=== PATIENT | male | born 1945 | race Caucasian/White ===

== ENCOUNTER 2017-03-16 14:44 | Observation (INO) ==
[2017-03-16] MEDS ORDERED: Oxymetazoline Nasal SPRAY BOTTLE NS ONE (15:03)
[2017-03-16] MEDS ORDERED: Lidocaine -MPF 4% 5 ML AMPUL INFILT ONE (15:03)
[2017-03-16] MEDS ORDERED: 0.9 % Sodium Chloride 1,000 ML IVC ONE ×2 (15:21→16:24)
--- NOTE | 2017-03-16 15:46 | Emergency Department Note ---
Disposition Clinical Impression: Acute blood loss anemia, Epistaxis Disposition: Admitted As Inpatient Condition: Good Referrals: Caryl Oliver [Primary Care Provider] - Forms: ED Satisfaction Letter Time of Disposition: 16:42 General Adult HPI - General Chief complaint: ED Epistaxis Stated complaint: nose bleed Time Seen by Provider: 03/16/17 14:50 Source: patient Limitations: no limitations Nursing Notes Reviewed: Yes Vital Signs Reviewed: Yes - History of Present Illness HPI Narrative: After being discharged by me approximately 2 hours ago he developed epistaxis again to return to the emergency department. He was previously packed by ENT. He arrived to the emergency department with blood coming from the right nare. His left nare is packed and also had blood seeping around the left packing. No syncope. On no blood thinners. No bleeding from anywhere else. Pain Scale: 0 Consistency: constant Improves with: nothing Worsens with: nothing Associated symptoms: Reports: denies other symptoms Treatments Prior to Arrival: none - Related Data Home Medications Medication Instructions Recorded Confirmed Amlodipine Besylate 10 mg PO DAILY 03/16/17 03/16/17 Atorvastatin [Lipitor] 10 mg PO HS 03/16/17 03/16/17 Cholecalciferol (Vitamin D3) 5,000 unit PO DAILY 03/16/17 03/16/17 [Vitamin D3] Fenofibric Acid (Choline) 135 mg PO DAILY 03/16/17 03/16/17 [Trilipix] Gabapentin [Neurontin] 300 mg PO BID 03/16/17 03/16/17 Losartan Potassium [Cozaar] 100 mg PO DAILY 03/16/17 03/16/17 Metformin HCl [Glucophage] 1,000 mg PO BID 03/16/17 03/16/17 Metoprolol [Lopressor] 100 mg PO BID 03/16/17 03/16/17 Mupirocin [Bactroban Oint] 12 appl TP TID 03/16/17 03/16/17 Sitagliptin Phosphate [Januvia] 50 mg PO DAILY 03/16/17 03/16/17 glipiZIDE [Glipizide] 10 mg PO BID 03/16/17 03/16/17 Previous Rx's Medication Instructions Recorded Amoxicillin/Clavulanate [Augmentin] 875 mg PO BIDWM #10 tablet 03/13/17 Allergies Allergy/AdvReac Type Severity Reaction Status Date / Time No Known Allergies Allergy Verified 03/16/17 14:45 All systems ED: reviewed and negative except as stated. Constitutional: Denies: fever Eyes: Denies: vision change ENT ED: Denies: throat pain Cardiovascular: Denies: chest pain Respiratory: Denies: cough Gastrointestinal: Denies: abdominal pain Musculoskeletal: Denies: back pain Integumentary: Denies: rash Past Medical History - Past Medical History Medical history: Reports: cancer, coronary artery disease, diabetes, hyperlipidemia, hypertension Psychiatric history: Reports: no psych history - Social History Smoking Status: Current every day smoker Smokeless Tobacco Status: No Alcohol use: Reports: occasionally Drug use: Reports: marijuana Physical Exam - General Limitations: no limitations General appearance: alert - Head Head exam: atraumatic - ENT ENT exam: other (left nare packed with blood seeming. Bleeding from right nare with blood down the back of the throat. ) - Cardiovascular Cardiovascular exam: Present: regular rate, normal rhythm - Abdominal Exam Abdominal exam: Present: soft, Non-Tender - Extremities Exam Extremities exam: Present: normal inspection - Neurological Exam Neurological exam: Present: alert, oriented X3 - Skin Skin exam: Present: warm, dry Course Course Narrative: Afrin with 4% lidocaine was instilled in bilateral nares after removal of the packing. No continued bleeding from the right nares after removing the left packing. Unable to see the bleeding source of the left nares. Places a posterior packing with a posterior balloon. Bleeding controlled. Will admit for observation. Spoke with ENT Dr Domingo who will come in and see the patient today. Bernardo has accepted the patient. Vital Signs Temperature 97.9 F 03/16/17 14:45 Pulse Rate 86 03/16/17 14:45 Respiratory Rate 20 03/16/17 14:45 Blood Pressure 119/60 03/16/17 14:45 O2 Sat by Pulse Oximetry 93 03/16/17 14:45 Temperature 97.9 F 03/16/17 14:45 Pulse Rate 86 03/16/17 14:45 Respiratory Rate 20 03/16/17 14:45 Blood Pressure 119/60 03/16/17 14:45 O2 Sat by Pulse Oximetry 93 03/16/17 14:45 Oxygen Delivery Oxygen Delivery Room Air Medical Decision Making - Medical Records Medical records reviewed: Yes I reviewed the patient's medical records. - Lab Data Lab results reviewed: Yes I reviewed the patient's lab results. Attestation Statement - Attestation Attestation: I, Hung Chahal DO, examined this patient [id number] and my medical decision-making was reviewed with Dr. Walter Mejia, Resident Physician. I agree with the documented findings, disposition and treatment plan as described except to the extent set forth below. Please see my progress notes for details. 71-year-old male presents to emergency room with acute epistaxis. He is seen earlier by myself in no acute bleeding. His hemoglobin was 8.0 at that time. Yesterday emergency room and made all the way to his home when he started to bleed again profusely. Immediate evaluation was completed at the bedside by myself and the resident physician. Nasal packing was applied with Afrin and lidocaine. Patient also had a posterior packing placed in the emergency room. ENT was contacted. Type and screen was ordered at this time and fluid hydration given. Patient will be admitted for further evaluation and management. Hospitalist page otherwise. Vital signs are stable. Patient has no other medical concerns or symptoms. After the treatment the procedure course was completed patient has hemostasis. No blood in the posterior pharynx noted at this time. Bleeding is controlled from the nostrils. See detailed documentation of physical exam, medical intervention, medical decision-making and disposition in the resident physician's note [id number] Patient will be evaluated by ENT here in the emergency room. Hospitalist artery patient informed to the patient. Happy to except for definitive evaluation.
[2017-03-16] MEDS ORDERED: Naloxone 0.4 MG/ML INJ IVP PRN (19:55)
[2017-03-16] MEDS ORDERED: *HR* Dextrose 50 % in Water (Syg) 50 ML SYRINGE IVP PRN (20:02)
[2017-03-16] MEDS ORDERED: D5% in Water 1,000 ML IVC PRN (20:02)
[2017-03-16] MEDS ORDERED: Dextrose Gel 15 GM PO PRN ×2 (20:02)
[2017-03-16] MEDS ORDERED: 0.9 % Sodium Chloride 1,000 ML IVC SCH (20:15)
--- NOTE | 2017-03-16 20:17 | Internal Med History&Physical ---
<Sandy Menchaca - Last Filed: 03/16/17 20:47> Date of Encounter: 03/16/17 Time of Encounter: 20:11 Assessment and Plan (1) Acute blood loss anemia Current visit: Yes Status: Acute Patient has been experiencing epistaxis for the past 5 days hemoglobin was 18 on 03/13 2017 today it is 12.2. Presently left nares is packed with no active bleeding noted we will continue to monitor CBC and transfuse as needed Continuous cardiac monitoring-history of coronary artery disease and sudden blood loss We will hold aspirin (2) Epistaxis Current visit: Yes Status: Acute Patient has been experiencing off and on left nares up excesses for the past 5 days it has been packed as well as cauterized with silver nitrate. Presently left nares is packed no active bleeding noted at this time. We did consult ENT Monitor H&H-transfuse as needed [place] blood pressure is stable we will continue to monitor for any hypertensive or hypotensive episodes Continuous cardiac monitoring Hold aspirin for now (3) Coronary artery disease Current visit: Yes Status: Chronic Continue with beta clementina statin hold ARB due to hypertension as well as aspirin due to bleeding. Continuous cardiac monitoring Nitrates as needed for chest pain Qualifiers: Coronary Disease-Associated Artery/Lesion type: [place] artery [place] vs. transplanted heart: [place] heart Associated angina: without angina Qualified Code(s): I25.10 - Atherosclerotic heart disease of [place] coronary artery without angina pectoris (4) Hypertension Current visit: Yes Status: Chronic Patient has been experiencing acute blood loss secondary to epistaxis. We will hold antihypertensives for now blood pressure is stable at 130 systolic we will resume once back to baseline Qualifiers: Hypertension type: essential hypertension Qualified Code(s): I10 - Essential (primary) hypertension (5) Diabetes Current visit: Yes Status: Chronic We will hold oral medications for now Accu-Cheks before meals at bedtime with sliding-scale insulin Diabetic diet Qualifiers: Diabetes mellitus type: type 2 Diabetes mellitus complication status: without complication Diabetes mellitus shelter insulin use: without intermediate school teacher use Qualified Code(s): E11.9 - Type 2 diabetes mellitus without complications (6) DVT prophylaxis Current visit: Yes Status: Acute 1 KAREN chavez Internal Medicine - H&P: HPI Chief complaint: nosebleed Admitted From: Emergency Dept Plans for Post Hospital Care: Home History of present illness: Mr. Jose is a 71 year old male past medical history of colon cancer last chemotherapy was March 17 of last year. Coronary artery disease with stent placement diabetes hyperlipidemia hypertension he is a current smoker. Patient has been experiencing off and on left-sided epistaxis throughout the week. He originally presented to the ER on the and had a "Rhino Rocket" placed. He continued to bleed around the packing and seen by Dr. Chayo ROBERT in her office. Packing was removed and no bleeding was noted he was advised to stop his aspirin, however few hours after it was removed the bleeding resumed again from the left nares. He was seen back in the ENT office this morning and packing was removed left nares was cauterized with silver nitrate and repacked. He was advised to go to the ER for evaluation since he seems so pale. He was evaluated by ER and sent home and 2 hours later he really turns with continued bleeding from left nares as well as from the right. Lab work was obtained which did show a drop in hemoglobin was 12.2 today it was 18 on the . The left nares was repacked right nares had stopped bleeding and he has been admitted for further observation. ENT was notified per ER physician who will see patient on consult. Presently patient is hemodynamically stable there is no active bleeding from his nares. I did review this case with Dr. Grady who agrees with plan. Past Med Surg Social Fam HX - Past Medical History Medical history: cancer, coronary artery disease, diabetes, hyperlipidemia, hypertension Psychiatric history: no psych history - Social History Smoking Status: Current every day smoker Packs per day: 2-3 Smokeless Tobacco Status: No Alcohol use: occasionally Drug use: marijuana - Family History Mother Living Status: Still Living Hx Family Cardiac Disorders: Yes (Heart disease) Internal Medicine - H&P: Meds Amoxicillin/Clavulanate [Augmentin] 875 mg PO BIDWM #10 tablet 03/13/17 [Rx] Amlodipine Besylate 10 mg PO DAILY 03/16/17 [History] Atorvastatin [Lipitor] 10 mg PO HS 03/16/17 [History] Cholecalciferol (Vitamin D3) [Vitamin D3] 5,000 unit PO DAILY 03/16/17 [History] Fenofibric Acid (Choline) [Trilipix] 135 mg PO DAILY 03/16/17 [History] Gabapentin [Neurontin] 300 mg PO BID 03/16/17 [History] Losartan Potassium [Cozaar] 100 mg PO DAILY 03/16/17 [History] Metformin HCl [Glucophage] 1,000 mg PO BID 03/16/17 [History] Metoprolol [Lopressor] 100 mg PO BID 03/16/17 [History] Mupirocin [Bactroban Oint] 12 appl TP TID 03/16/17 [History] Sitagliptin Phosphate [Januvia] 50 mg PO DAILY 03/16/17 [History] glipiZIDE [Glipizide] 10 mg PO BID 03/16/17 [History] 3 Allergy/AdvReac Type Severity Reaction Status Date / Time No Known Allergies Allergy Verified 03/16/17 14:45 All Systems PM: A 10-system review of systems was performed and is negative for pertinent findings except as documented above in the HPI. - Constitutional Constitutional: no chills, no fever(s), no night sweats - EENT Eyes: no change in vision, no discharge, no pain, no photophobia Ears: no ear discharge, no ear pain, no tinnitus Nose, mouth and throat: epistaxis, no dysphagia, no nasal discharge, no neck pain, no sore throat - Cardiovascular Cardiovascular ROS IM: no chest pain, no diaphoresis, no dyspnea, no lightheadedness, no palpitations, no syncope - Respiratory Respiratory: no cough, no dyspnea, no wheezing, no excessive phlegm production - Gastrointestinal Gastrointestinal: no abdominal pain, no diarrhea, no hematemesis, no hematochezia, no melena, no nausea, no vomiting - Musculoskeletal Musculoskeletal ROS IM: no numbness, no tingling - Integumentary Integumentary IM: no rash, no unusual bruising - Neurological Neurological ROS: no confusion, no convulsions, no focal weakness, no numbness, no tingling, no tremor(s) - Hematologic/Lymphatic Hematologic/Lymphatic: no easy bruising - Constitutional Vitals: Temp Pulse Resp BP Pulse Ox 98.3 F 80 16 133/57 96 03/16/17 18:56 03/16/17 18:56 03/16/17 18:56 03/16/17 18:56 03/16/17 18:56 General appearance: Present: A&O X 3, morbidly obese - Head Head exam: Present: atraumatic, normocephalic - Eye Eye exam: Present: PERRL, conjuntiva pink, sclera anicteric Pupils: Present: PERRL - Neck Neck exam general surgery: Present: supple, trachea midline. Absent: lymphadenopathy - Respiratory Respiratory exam: Present: CTAB. Absent: accessory muscle use, rales, rhonchi, wheezes - Cardiovascular Cardiovascular exam: Present: RRR, +S1, +S2. Absent: diastolic murmur, gallop, rubs, systolic murmur - GI/Abdominal GI/Abdominal exam: Present: normal bowel sounds, soft, no peritoneal signs. Absent: distended, tenderness - Extremities Exam Extremities exam: Present: warm, radial pulses palpable and symmetrical. Absent : calf tenderness, cyanotic, pedal edema - Neurological Exam Neurological exam: Present: CN II-XII intact, oriented X3, no focal deficits. Absent: pronater drift, facial droop, speech deficit - Skin Skin exam: Present: dry, intact <Brian Grady - Last Filed: 03/17/17 00:43> Date of Encounter: 03/17/17 Internal Medicine - H&P: HPI History of present illness: Mr. Garcia is a 71 year old male All Systems PM: A 10-system review of systems was performed and is negative for pertinent findings except as documented above in the HPI. - Constitutional Vitals: Temp Pulse Resp BP Pulse Ox 98.5 F 71 14 122/66 97 03/16/17 23:47 03/16/17 23:47 03/16/17 23:47 03/16/17 23:47 03/16/17 23:47 - Attending Attestation I have seen and examined this patient independently. I have discussed with WEBSITE ADMIN Ms Menchaca regarding the management plan. Agree with the documentation. Patient has nose bleeding. Stopped active bleeding now. Patient feels fine, denies chest pain or shortness of breath. Continue closely monitor patient. ENT consult will see patient in a.m.
[2017-03-16] MEDS: Metoprolol 100 MG TABLET PO SCH (21:21)
[2017-03-16] MEDS: Gabapentin 300 MG CAPSULE PO SCH (21:21)
[2017-03-16] MEDS: Insulin LISPRO 300 UNITS/3 ML VIAL SQ SCH (22:01)
[2017-03-17 05:14] LABS: Basophils # 0.1 K/mcL (0.0-0.2); Basophils % 0.5 %; Eosinophils # 0.1 K/mcL (0.0-0.6); Eosinophils % 1.1 %; Hematocrit 21.1 % (37.5-50.1); Hemoglobin 6.8 g/dL (12.9-16.9); Immature Granulocytes % 0.3 % (0-4); Lymphocytes # 2.5 K/mcL (0.6-4.6); Lymphocytes % 26.2 %; Mean Corpuscular HGB Conc 32.2 g/dL (31.6-35.5); Mean Corpuscular Hemoglobin 27.3 pg (28.0-33.3); Mean Corpuscular Volume 84.7 fL (83.0-100.0); Mean Platelet Volume 10.8 fL (9.4-12.4); Monocytes # 0.8 K/mcL (0.0-1.3); Monocytes % 8.2 %; Neutrophils # 6.1 K/mcL (1.6-8.9); Platelet Count 235 K/mcL (140-400); Red Blood Count 2.49 M/mcL (4.19-5.50); Red Cell Distribution Width 14.3 % (11.5-14.5); Segmented Neutrophils % 63.7 %
[2017-03-17] MEDS: Acetaminophen 325 MG TABLET PO PRN ×2 (08:32→15:21)
[2017-03-17] MEDS: Cholecalciferol (D-3) 1,000 UNIT TABLET PO SCH (08:33)
[2017-03-17] MEDS: Gabapentin 300 MG CAPSULE PO SCH ×2 (08:33→20:01)
[2017-03-17] MEDS: Metoprolol 100 MG TABLET PO SCH ×2 (08:33→20:01)
[2017-03-17] MEDS: Fenofibrate 54 MG TABLET PO SCH (08:33)
[2017-03-17] MEDS: Insulin LISPRO 300 UNITS/3 ML VIAL SQ SCH ×4 (08:34→20:18)
--- NOTE | 2017-03-17 09:20 | ENT - Consult Note ---
Date of Encounter: 03/17/17 Time of Encounter: 09:16 Assessment and Plan (1) Epistaxis Current Visit: Yes Status: Acute The patient is currently stable but has had significant blood loss and I have been unable to find a specific spot to cauterize. I highly agree with the transfusion and I would like him stay at least another 24 hours before discharged. The pack needs to stay in place until Sunday and can then be removed in the ENT clinic. He should be discharged on the Augmentin. Should he rebleed consideration should be made for transfer for possible Interventional radiology. I will check on him again tomorrow AM or sooner as needed. History of Present Illness Reason for ENT Consult: epistaxis History of present illness: 71 yo male well known to me with recurrent left sided epistaxis during most of the week. Yesterday I did a nasal endoscopy and cauterized several suspicious spots but no obvious bleeding spot was found. He was pale and diaphoretic in the office. We sent him directly to the ED for blood work and admission for observation. His Hgb was 8.0 and for some reason (perhaps patient insistence) he was sent home without a transfusion. He then returned to the ED in the afternoon with more bleeding and was successfully repacked. His Hgb this morning is 6.9 with a transfusion ordered. He denies further bleeding through the night. Past Med Surg Social Fam HX - Past Medical History Medical history: cancer, coronary artery disease, diabetes, hyperlipidemia, hypertension Psychiatric history: no psych history - Social History Smoking Status: Current every day smoker Packs per day: 2-3 Smokeless Tobacco Status: No Alcohol use: occasionally Drug use: marijuana - Family History Mother Living Status: Still Living Hx Family Cardiac Disorders: Yes (Heart disease) Medications and Allergies Amoxicillin/Clavulanate [Augmentin] 875 mg PO BIDWM #10 tablet 03/13/17 [Rx] Amlodipine Besylate 10 mg PO DAILY 03/16/17 [History] Atorvastatin [Lipitor] 10 mg PO HS 03/16/17 [History] Cholecalciferol (Vitamin D3) [Vitamin D3] 5,000 unit PO DAILY 03/16/17 [History] Fenofibric Acid (Choline) [Trilipix] 135 mg PO DAILY 03/16/17 [History] Gabapentin [Neurontin] 300 mg PO BID 03/16/17 [History] Losartan Potassium [Cozaar] 100 mg PO DAILY 03/16/17 [History] Metformin HCl [Glucophage] 1,000 mg PO BID 03/16/17 [History] Metoprolol [Lopressor] 100 mg PO BID 03/16/17 [History] Mupirocin [Bactroban Oint] 12 appl TP TID 03/16/17 [History] Sitagliptin Phosphate [Januvia] 50 mg PO DAILY 03/16/17 [History] glipiZIDE [Glipizide] 10 mg PO BID 03/16/17 [History] 3 Allergy/AdvReac Type Severity Reaction Status Date / Time No Known Allergies Allergy Verified 03/16/17 14:45 ENT Exam Initial Vital Signs Temp Pulse Resp BP Pulse Ox 97.9 F 86 20 119/60 93 03/16/17 14:45 03/16/17 14:45 03/16/17 14:45 03/16/17 14:45 03/16/17 14:45 - ENT Other (Pack in place left nares, no blood around pack or in right nares, oral cavity without old or fresh blood.) Exam Initial Vital Signs Temp Pulse Resp BP Pulse Ox 97.9 F 86 20 119/60 93 03/16/17 14:45 03/16/17 14:45 03/16/17 14:45 03/16/17 14:45 03/16/17 14:45 Results - Labs 03/17/17 04:45 Abnormal lab results RBC 2.49 M/mcL (4.19-5.50) L 03/17/17 04:45 Hgb 6.8 g/dL (12.9-16.9) L 03/17/17 04:45 Hct 21.1 % (37.5-50.1) L 03/17/17 04:45 MCH 27.3 pg (28.0-33.3) L 03/17/17 04:45 POC Glucose 208 (58-89) H 03/16/17 21:49 All other labs normal. Consult Discharge Plan - Plan Referrals: Caryl Oliver [Primary Care Provider] -
[2017-03-17 10:00] LABS: Hematocrit 23.4 % (37.5-50.1); Hemoglobin 7.1 g/dL (12.9-16.9)
[2017-03-17] MEDS ORDERED: 0.9 % Sodium Chloride 250 ML ONE ×2 (11:19→16:04)
--- NOTE | 2017-03-17 15:52 | Internal Med Progress Note ---
Date of Encounter: 03/17/17 Time of Encounter: 08:35 - Assessment and plan (1) Epistaxis Current Visit: Yes Status: Acute Assessment and plan: Patient admitted for ongoing epistaxis for 3-4 days. He has been seen multiple times. ENT has been unable to find a specific spot cauterized. He does have blood loss anemia from epistaxis. Hemoglobin was 6.9. He is received 2 units of packed red blood cells. We will continue to monitor overnight and will repeat H&H overnight. ENT will reevaluate patient in the morning. If bleeding continues, may consider transferring to another facility for IR. (2) Acute blood loss anemia Current Visit: Yes Status: Acute Assessment and plan: Hemoglobin 6.9. Patient has received 2 units of packed red cells. We will continue to monitor hemoglobin and hematocrit overnight. Continue telemetry Watch for signs of bleeding Transfuse if hemoglobin less than 8. (3) Hypertension Current Visit: Yes Status: Chronic Assessment and plan: Continue home medications. Qualifiers: Hypertension type: essential hypertension Qualified Code(s): I10 - Essential (primary) hypertension (4) Diabetes Current Visit: Yes Status: Chronic Assessment and plan: Continue sliding scale insulin, Accu-Cheks before meals at bedtime, diabetic diet. Qualifiers: Diabetes mellitus type: type 2 Diabetes mellitus complication status: without complication Diabetes mellitus fci insulin use: without watermaster use Qualified Code(s): E11.9 - Type 2 diabetes mellitus without complications (5) Coronary artery disease Current Visit: Yes Status: Chronic Assessment and plan: Patient denies chest pain. Patient is being monitored due to anemia. Continue beta clementina, statin, and fenofibrate. Qualifiers: Coronary Disease-Associated Artery/Lesion type: [place] artery [place] vs. transplanted heart: [place] heart Associated angina: without angina Qualified Code(s): I25.10 - Atherosclerotic heart disease of [place] coronary artery without angina pectoris (6) DVT prophylaxis Current Visit: Yes Status: Acute - Time Spent With Patient less than 15 minutes - Subjective Interval history: Patient was seen and assessed at bedside at 8:35 AM. Patient reports epistaxis for 3-4 days. He has been seen at the ENT office several times, he was sent to the emergency department yesterday and was sent home. Patient presented again and was admitted. He denies any pain. Packing remains in place. He denies headache or blurred vision, no nausea or vomiting diarrhea. No new cough or hemoptysis. - Constitutional Vitals: Temp Pulse Resp BP Pulse Ox 97.9 F 76 18 129/68 96 03/17/17 15:38 03/17/17 15:38 03/17/17 15:38 03/17/17 15:38 03/17/17 15:38 General appearance: Present: cooperative, A&O X 3, morbidly obese, pleasant, no acute distress, answers questions appropriately - Head Head exam: Present: atraumatic, normal inspection, normocephalic - Eye Eye exam: Present: PERRL, conjuntiva pink, sclera anicteric Pupils: Present: PERRL - Neck Neck exam general surgery: Present: supple, trachea midline. Absent: lymphadenopathy - Respiratory Respiratory exam: Present: CTAB. Absent: accessory muscle use, rales, rhonchi, wheezes - Cardiovascular Cardiovascular exam: Present: RRR, +S1, +S2. Absent: diastolic murmur, gallop, rubs, systolic murmur - GI/Abdominal GI/Abdominal exam: Present: normal bowel sounds, soft, no peritoneal signs. Absent: distended, tenderness - Extremities Exam Extremities exam: Present: warm, radial pulses palpable and symmetrical. Absent : calf tenderness, cyanotic, pedal edema - Neurological Exam Neurological exam: Present: CN II-XII intact, oriented X3, no focal deficits. Absent: pronater drift, facial droop, speech deficit - Skin Skin exam: Present: dry, intact Internal Medicine: Result - Labs CBC & Chem 7: 03/17/17 09:47 Labs: Short CBC 03/17/17 03/17/17 Range/Units 04:45 09:47 WBC 9.6 (4.3-11.1) K/mcL Hgb 6.8 L 7.1 L (12.9-16.9) g/dL Hct 21.1 L 23.4 L (37.5-50.1) % Plt Count 235 (140-400) K/mcL Neutrophils # 6.1 (1.6-8.9) K/mcL Consult Discharge Plan - Plan Referrals: Caryl Oliver [Primary Care Provider] -
[2017-03-17 19:42] LABS: Hematocrit 27.6 % (37.5-50.1)
[2017-03-17 19:43] LABS: Hemoglobin 8.9 g/dL (12.9-16.9)
[2017-03-18] MEDS: Gabapentin 300 MG CAPSULE PO SCH (08:10)
[2017-03-18] MEDS: Cholecalciferol (D-3) 1,000 UNIT TABLET PO SCH (08:10)
[2017-03-18] MEDS: Fenofibrate 54 MG TABLET PO SCH (08:10)
[2017-03-18] MEDS: Metoprolol 100 MG TABLET PO SCH (08:10)
[2017-03-18] MEDS: Insulin LISPRO 300 UNITS/3 ML VIAL SQ SCH (10:27)
[2017-03-18 11:02] VITALS: BP 126/56
[2017-03-18] MEDS ORDERED: *HR* Heparin 5,000 UNIT/ML VIAL ONE (11:38)
--- NOTE | 2017-03-18 12:54 | Discharge Summary ---
Date of Encounter: 03/18/17 Time of Encounter: 12:24 - Discharge Diagnosis (1) Epistaxis Priority: Primary Status: Acute Comments: Patient admitted for ongoing epistaxis for 3-4 days. He has been seen multiple times. ENT has been unable to find a specific spot cauterized. He does have blood loss anemia from epistaxis. Hemoglobin was 6.9. He is received 2 units of packed red blood cells. We will continue to monitor overnight and will repeat H&H overnight. ENT has evaluated the pt again this morning, they have signed off. No active bleeding noted. Patient will be sent home with a prescription for Augmentin 875 mg by mouth twice a day 5 more days. Prescription was sent to patient's pharmacy. Patient will follow-up in the office. (2) Acute blood loss anemia Priority: Secondary Status: Acute Comments: Hemoglobin 8.9. Patient has received 2 units of packed red cells for initial hemoglobin of 6.9. No signs of bleeding noted. Patient is stable for discharge. (3) Hypertension Priority: Secondary Status: Chronic Comments: Chronic. Continue home medications. Qualifiers: Hypertension type: essential hypertension Qualified Code(s): I10 - Essential (primary) hypertension (4) Diabetes Priority: Secondary Status: Chronic Comments: Chronic. Continue home medications and regimen at home. Qualifiers: Diabetes mellitus type: type 2 Diabetes mellitus complication status: without complication Diabetes mellitus complaint evaluation supervisor insulin use: without skilled nursing use Qualified Code(s): E11.9 - Type 2 diabetes mellitus without complications (5) Coronary artery disease Priority: Secondary Status: Chronic Comments: Patient denies chest pain. Continue home medications Qualifiers: Coronary Disease-Associated Artery/Lesion type: [place]bler artery [place] vs. transplanted heart: ambler heart Associated angina: without angina Qualified Code(s): I25.10 - Atherosclerotic heart disease of [place] coronary artery without angina pectoris (6) DVT prophylaxis Priority: Secondary Status: Acute Comments: Patient was ambulatory. KAREN chavez ordered. No pharmacologic intervention warranted due to anemia and epistaxis. - Discharge Medications Prescriptions: Amoxicillin/Clavulanate [Augmentin] 875 mg PO BIDWM #10 tablet Home Medications: Amlodipine Besylate 10 mg PO DAILY 03/16/17 [History] Atorvastatin [Lipitor] 10 mg PO HS 03/16/17 [History] Cholecalciferol (Vitamin D3) [Vitamin D3] 5,000 unit PO DAILY 03/16/17 [History] Fenofibric Acid (Choline) [Trilipix] 135 mg PO DAILY 03/16/17 [History] Gabapentin [Neurontin] 300 mg PO BID 03/16/17 [History] Losartan Potassium [Cozaar] 100 mg PO DAILY 03/16/17 [History] Metformin HCl [Glucophage] 1,000 mg PO BID 03/16/17 [History] Metoprolol [Lopressor] 100 mg PO BID 03/16/17 [History] Mupirocin [Bactroban Oint] 12 appl TP TID 03/16/17 [History] Sitagliptin Phosphate [Januvia] 50 mg PO DAILY 03/16/17 [History] glipiZIDE [Glipizide] 10 mg PO BID 03/16/17 [History] Amoxicillin/Clavulanate [Augmentin] 875 mg PO BIDWM #10 tablet 03/18/17 [Rx] Allergies/Adverse Reactions: 3 Allergy/AdvReac Type Severity Reaction Status Date / Time No Known Allergies Allergy Verified 03/16/17 14:45 Date of admission: 03/16/17 17:03 Primary care physician: Caryl Oliver Discharging clinician: Evelyn Arzate Anticipated date of discharge: 03/18/17 - Patient Status Disposition: Home, Self-Care Condition: Good Functional capacity at discharge: independent ambulation - Discharge Instructions Instructions: Epistaxis (DC), Diabetes Mellitus Type 2 in Adults (DC), Chronic Hypertension (DC), Anemia (GEN) Follow Up With: Caryl Oliver [Primary Care Provider] - Additional Instructions: Please follow up with primary care provider in the next 7-10 days for recheck. Please follow up with ENT as specified. Resume normal medications and activities. Your new prescription has been called into your pharmacy. Please maintain a heart healthy and diabetic diet. Hospital course: Mr. Garcia is a 71 year old male with diabetes, CAD, hypertension, hyperlipidemia was admitted to the emergency department after bouncing back several times, was also in provider office for epistaxis. Patient was seen by ENT yesterday and today. There is not appear to be any bleeding at this time. Patient will be sent home on Augmentin 875 mg by mouth twice a day for 5 days. He will follow up in the office for continued monitoring. Hemoglobin is stable. Patient was admitted with hemoglobin of 6.9 and received 2 units of packed red cells. Vitals are stable. Patient is stable and ready for discharge. - Time Spent with Patient Total time spent providing and/or coordinating discharge services: Less than 30 minutes - Constitutional Vitals: Temp Pulse Resp BP Pulse Ox 98.2 F 73 16 126/56 96 03/18/17 11:01 03/18/17 11:01 03/18/17 11:01 03/18/17 11:01 03/18/17 11:01 General appearance: Present: cooperative, disheveled, A&O X 3, morbidly obese, pleasant, no acute distress, answers questions appropriately - Head Head exam: Present: atraumatic, normal inspection, normocephalic - Eye Eye exam: Present: normal appearance, conjuntiva pink, sclera anicteric - Neck Neck exam general surgery: Present: supple, trachea midline. Absent: lymphadenopathy - Respiratory Respiratory exam: Present: CTAB. Absent: accessory muscle use, rales, rhonchi, wheezes - Cardiovascular Cardiovascular exam: Present: RRR, +S1, +S2. Absent: diastolic murmur, gallop, rubs, systolic murmur - GI/Abdominal GI/Abdominal exam: Present: distended, normal bowel sounds, soft, no peritoneal signs. Absent: hepatomegaly, tenderness - Extremities Exam Extremities exam: Present: normal inspection, warm, radial pulses palpable and symmetrical. Absent: calf tenderness, cyanotic, pedal edema - Neurological Exam Neurological exam: Present: alert, oriented X3, no focal deficits. Absent: facial droop, speech deficit - Skin Skin exam: Present: dry, intact, normal color, warm. Absent: rash
== END 2017-03-18 12:51 | disposition home or self-care (01) ==
LOC: 3BNU 14:44 → EMEROO 14:44 → 3BNU 17:56
PROVIDERS: ADMIT Hospitalist; ATTEND Registered Nurse

== ENCOUNTER 2021-05-18 10:43 | Inpatient (IN) ==
[2021-05-18] MEDS ORDERED: Naloxone 0.4 MG/ML INJ IVP PRN (12:04)
[2021-05-18] MEDS ORDERED: Acetaminophen 325 MG TABLET PO PRN (12:04)
[2021-05-18] MEDS ORDERED: Ondansetron ODT 4 MG TAB.RAPDIS SL PRN (12:04)
[2021-05-18] MEDS ORDERED: Mag Hydrox/Al Hydrox/Simeth 30 ML UDC PO PRN (12:04)
[2021-05-18] MEDS ORDERED: Melatonin 3 MG TABLET PO PRN (12:04)
[2021-05-18 13:03] LABS: Basophils % 0.6 %; Eosinophils % 0.9 %
[2021-05-18 13:05] LABS: Basophils # 0.1 K/mcL (0.0-0.2); Eosinophils # 0.1 K/mcL (0.0-0.6); Hematocrit 42.7 % (37.5-50.1); Hemoglobin 12.7 g/dL (12.9-16.9); Immature Granulocytes % 0.4 % (0-4); Lymphocytes # 2.8 K/mcL (0.6-4.6); Lymphocytes % 19.7 %; Mean Corpuscular HGB Conc 29.7 g/dL (31.6-35.5); Mean Corpuscular Hemoglobin 23.6 pg (28.0-33.3); Mean Corpuscular Volume 79.4 fL (83.0-100.0); Mean Platelet Volume 10.1 fL (9.4-12.4); Monocytes # 1.1 K/mcL (0.0-1.3); Monocytes % 7.5 %; Neutrophils # 9.9 K/mcL (1.6-8.9); Platelet Count 329 K/mcL (140-400); Red Blood Count 5.38 M/mcL (4.19-5.50); Red Cell Distribution Width 16.8 % (11.5-14.5); Segmented Neutrophils % 70.9 %
[2021-05-18 13:11] LABS: INR 1.2; Prothrombin Time 13.2 Seconds (9.4-12.1)
[2021-05-18 13:14] LABS: Activated Partial Thrombo Time 35.2 Seconds (26.0-36.0)
[2021-05-18 13:21] LABS: Alanine Aminotransferase 6 Units/L (7-52); Albumin 4.2 g/dL (3.5-5.7); Albumin/Globulin Ratio 1.1 (1.1-2.2); Alkaline Phosphatase 74 Units/L (34-104); Aspartate Amino Transferase 10 Units/L (13-39); BUN/Creatinine Ratio 16 (6-26); Bilirubin,Total 0.3 mg/dL (0.3-1.0); Blood Urea Nitrogen 15 mg/dL (8-23); Calcium 9.7 mg/dL (8.6-10.3); Carbon Dioxide 26 mEq/L (23-29); Chloride 98 mEq/L (98-107); Glucose 128 mg/dL (70-105); Osmolality,Calculated 282 (280-300); Potassium 4.3 mEq/L (3.5-5.1); Sodium 135 mEq/L (136-145); Total Protein 8.2 g/dL (6.4-8.9); eGFR For African Americans > 60 (> 60); eGFR For Non-African Americans > 60 (> 60)
[2021-05-18] MEDS ORDERED: Gadolinium Contrast Agent (WT Based) IV PRN (13:35)
[2021-05-18] MEDS ORDERED: Dextrose Gel 15 GM/37.5 ML TUBE PO PRN ×2 (13:47)
[2021-05-18] MEDS ORDERED: *HR* Dextrose 50 % in Water (Syg) 50 ML SYRINGE IVP PRN (13:47)
[2021-05-18] MEDS ORDERED: D5% in Water 1,000 ML IVC PRN (13:47)
[2021-05-18 13:55] LABS: C-Reactive Protein 44 mg/L (Less than 10)
[2021-05-18] MEDS ORDERED: Piperacillin/Tazobactam 3.375 GM in 0.9 % Sodium Chloride Mini Bag 100 ML IVPB SCH (16:00)
[2021-05-18] MEDS: *HR* Heparin 5,000 UNIT/ML VIAL SQ SCH (17:11)
[2021-05-18] MEDS: Piperacillin/Tazobactam 3.375 GM in 0.9 % Sodium Chloride Mini Bag 100 ML IVPB SCH ×2 (17:12→23:58)
[2021-05-18] MEDS: Insulin LISPRO 300 UNITS/3 ML VIAL SUBQ SCH (17:24)
[2021-05-18] MEDS: Gabapentin 300 MG CAPSULE PO SCH (19:50)
[2021-05-18] MEDS: Metoprolol 100 MG TABLET PO SCH (19:50)
[2021-05-18] MEDS ORDERED: Insulin LISPRO 300 UNITS/3 ML VIAL SUBQ SCH (21:00)
[2021-05-19 04:43] LABS: Basophils % 0.5 %; Eosinophils # 0.1 K/mcL (0.0-0.6); Eosinophils % 1.5 %; Hematocrit 38.1 % (37.5-50.1); Hemoglobin 11.4 g/dL (12.9-16.9); Immature Granulocytes % 0.1 % (0-4); Lymphocytes # 1.3 K/mcL (0.6-4.6); Lymphocytes % 15.1 %; Mean Corpuscular HGB Conc 29.9 g/dL (31.6-35.5); Mean Corpuscular Hemoglobin 23.3 pg (28.0-33.3); Mean Corpuscular Volume 77.9 fL (83.0-100.0); Mean Platelet Volume 10.3 fL (9.4-12.4); Monocytes # 0.8 K/mcL (0.0-1.3); Neutrophils # 6.3 K/mcL (1.6-8.9); Platelet Count 245 K/mcL (140-400); Red Blood Count 4.89 M/mcL (4.19-5.50); Red Cell Distribution Width 16.6 % (11.5-14.5); Segmented Neutrophils % 73.8 %; White Blood Count 8.5 K/mcL (4.3-11.1)
[2021-05-19 05:04] LABS: BUN/Creatinine Ratio 19 (6-26); Blood Urea Nitrogen 16 mg/dL (8-23); Calcium 9.1 mg/dL (8.6-10.3); Carbon Dioxide 27 mEq/L (23-29); Chloride 100 mEq/L (98-107); Glucose 143 mg/dL (70-105); Osmolality,Calculated 284 (280-300); Potassium 4.2 mEq/L (3.5-5.1); Sodium 135 mEq/L (136-145); eGFR For African Americans > 60 (> 60); eGFR For Non-African Americans > 60 (> 60)
[2021-05-19] MEDS: *HR* Heparin 5,000 UNIT/ML VIAL SQ SCH ×2 (05:24→16:57)
[2021-05-19] MEDS: Metoprolol 100 MG TABLET PO SCH ×2 (07:43→19:49)
[2021-05-19] MEDS: Gabapentin 300 MG CAPSULE PO SCH ×2 (07:43→19:49)
[2021-05-19] MEDS: Insulin LISPRO 300 UNITS/3 ML VIAL SUBQ SCH ×4 (07:43→19:49)
[2021-05-19] MEDS: Piperacillin/Tazobactam 3.375 GM in 0.9 % Sodium Chloride Mini Bag 100 ML IVPB SCH ×3 (07:54→23:13)
[2021-05-19] MEDS ORDERED: Cholecalciferol (D-3) 1,000 UNIT (25MCG) TABLET PO SCH (09:00)
[2021-05-19] MEDS ORDERED: amLODIPine 5 MG TABLET PO SCH (09:00)
[2021-05-19] MEDS ORDERED: Aspirin Enteric Coated 81 MG Tablet PO SCH (09:00)
[2021-05-19] MEDS ORDERED: Lidocaine -MPF 2% 5 ML VIAL ONE (10:13)
[2021-05-19] MEDS ORDERED: Acetaminophen 325 MG TABLET PO PRN (16:18)
[2021-05-19] MEDS ORDERED: Gadolinium Contrast Agent (WT Based) IV PRN (16:18)
[2021-05-19] MEDS ORDERED: *HR* Dextrose 50 % in Water (Syg) 50 ML SYRINGE IVP PRN (16:18)
[2021-05-19] MEDS ORDERED: Ondansetron ODT 4 MG TAB.RAPDIS SL PRN (16:18)
[2021-05-19] MEDS ORDERED: D5% in Water 1,000 ML IVC PRN (16:18)
[2021-05-19] MEDS ORDERED: Naloxone 0.4 MG/ML INJ IVP PRN (16:18)
[2021-05-19] MEDS ORDERED: Dextrose Gel 15 GM/37.5 ML TUBE PO PRN ×2 (16:18)
[2021-05-19] MEDS ORDERED: Mag Hydrox/Al Hydrox/Simeth 30 ML UDC PO PRN (16:18)
[2021-05-19] MEDS ORDERED: Melatonin 3 MG TABLET PO PRN (16:18)
[2021-05-20 04:47] LABS: Basophils % 0.5 %; Eosinophils # 0.1 K/mcL (0.0-0.6); Eosinophils % 1.8 %; Hematocrit 35.4 % (37.5-50.1); Hemoglobin 10.8 g/dL (12.9-16.9); Immature Granulocytes % 0.3 % (0-4); Lymphocytes # 1.3 K/mcL (0.6-4.6); Lymphocytes % 16.1 %; Mean Corpuscular HGB Conc 30.5 g/dL (31.6-35.5); Mean Corpuscular Hemoglobin 23.5 pg (28.0-33.3); Mean Platelet Volume 10.5 fL (9.4-12.4); Monocytes # 0.7 K/mcL (0.0-1.3); Monocytes % 9.3 %; Neutrophils # 5.8 K/mcL (1.6-8.9); Platelet Count 238 K/mcL (140-400); Red Cell Distribution Width 16.3 % (11.5-14.5)
[2021-05-20] MEDS: *HR* Heparin 5,000 UNIT/ML VIAL SQ SCH ×2 (04:56→17:14)
[2021-05-20 04:57] LABS: BUN/Creatinine Ratio 16 (6-26); Blood Urea Nitrogen 11 mg/dL (8-23); Calcium 8.8 mg/dL (8.6-10.3); Carbon Dioxide 26 mEq/L (23-29); Chloride 99 mEq/L (98-107); Glucose 143 mg/dL (70-105); Magnesium 1.6 mg/dL (1.6-2.6); Osmolality,Calculated 276 (280-300); Potassium 3.9 mEq/L (3.5-5.1); Sodium 132 mEq/L (136-145); eGFR For African Americans > 60 (> 60); eGFR For Non-African Americans > 60 (> 60)
[2021-05-20] MEDS: Insulin LISPRO 300 UNITS/3 ML VIAL SUBQ SCH ×4 (08:33→20:37)
[2021-05-20] MEDS: Piperacillin/Tazobactam 3.375 GM in 0.9 % Sodium Chloride Mini Bag 100 ML IVPB SCH ×2 (08:34→17:12)
[2021-05-20] MEDS: Aspirin Enteric Coated 81 MG Tablet PO SCH (08:35)
[2021-05-20] MEDS: Gabapentin 300 MG CAPSULE PO SCH ×2 (08:35→20:36)
[2021-05-20] MEDS: Metoprolol 100 MG TABLET PO SCH ×2 (08:35→20:36)
[2021-05-20] MEDS: Cholecalciferol (D-3) 1,000 UNIT (25MCG) TABLET PO SCH (08:36)
[2021-05-20] MEDS: amLODIPine 5 MG TABLET PO SCH (08:36)
[2021-05-20] MEDS ORDERED: *HR* Heparin 10,000 UNIT/10 ML VIAL ONE (12:46)
[2021-05-20] MEDS ORDERED: 0.9 % Sodium Chloride 2,000 ML ONE (12:46)
[2021-05-20] MEDS ORDERED: Heparin 1,000 UNITS/500 mL 500 ML ONE ×2 (12:46→14:54)
[2021-05-20] MEDS ORDERED: *HR* FentaNYL (PF) 100 MCG/2 ML VIAL ONE ×2 (12:57→13:56)
[2021-05-20] MEDS ORDERED: *HR* Midazolam HCl 2 MG/2 ML VIAL ONE ×3 (12:57→15:09)
[2021-05-20] MEDS: polyethylene glycoL 3350 17 GM POWD.PACK PO SCH (17:11)
[2021-05-21] MEDS: Piperacillin/Tazobactam 3.375 GM in 0.9 % Sodium Chloride Mini Bag 100 ML IVPB SCH ×3 (00:23→17:11)
[2021-05-21 03:17] LABS: Basophils % 0.4 %; Eosinophils # 0.2 K/mcL (0.0-0.6); Eosinophils % 1.8 %; Hematocrit 34.2 % (37.5-50.1); Hemoglobin 10.3 g/dL (12.9-16.9); Immature Granulocytes % 0.2 % (0-4); Lymphocytes # 1.1 K/mcL (0.6-4.6); Lymphocytes % 13.2 %; Mean Corpuscular HGB Conc 30.1 g/dL (31.6-35.5); Mean Corpuscular Hemoglobin 23.3 pg (28.0-33.3); Mean Corpuscular Volume 77.2 fL (83.0-100.0); Mean Platelet Volume 10.6 fL (9.4-12.4); Monocytes # 0.7 K/mcL (0.0-1.3); Neutrophils # 6.2 K/mcL (1.6-8.9); Platelet Count 233 K/mcL (140-400); Red Blood Count 4.43 M/mcL (4.19-5.50); Red Cell Distribution Width 16.5 % (11.5-14.5); Segmented Neutrophils % 75.4 %; White Blood Count 8.2 K/mcL (4.3-11.1)
[2021-05-21 03:33] LABS: BUN/Creatinine Ratio 14 (6-26); Blood Urea Nitrogen 12 mg/dL (8-23); Calcium 8.7 mg/dL (8.6-10.3); Carbon Dioxide 27 mEq/L (23-29); Chloride 101 mEq/L (98-107); Glucose 159 mg/dL (70-105); Magnesium 1.8 mg/dL (1.6-2.6); Osmolality,Calculated 279 (280-300); Potassium 4.2 mEq/L (3.5-5.1); Sodium 133 mEq/L (136-145); eGFR For African Americans > 60 (> 60); eGFR For Non-African Americans > 60 (> 60)
[2021-05-21] MEDS: *HR* Heparin 5,000 UNIT/ML VIAL SQ SCH ×2 (05:51→17:27)
[2021-05-21] MEDS: Insulin LISPRO 300 UNITS/3 ML VIAL SUBQ SCH ×4 (08:01→20:32)
[2021-05-21] MEDS: polyethylene glycoL 3350 17 GM POWD.PACK PO SCH (08:25)
[2021-05-21] MEDS: amLODIPine 5 MG TABLET PO SCH (08:25)
[2021-05-21] MEDS: Cholecalciferol (D-3) 1,000 UNIT (25MCG) TABLET PO SCH (08:25)
[2021-05-21] MEDS: Metoprolol 100 MG TABLET PO SCH ×2 (08:26→20:33)
[2021-05-21] MEDS: Gabapentin 300 MG CAPSULE PO SCH ×2 (08:26→20:33)
[2021-05-21] MEDS: Aspirin Enteric Coated 81 MG Tablet PO SCH (08:26)
[2021-05-21] MEDS ORDERED: Nicotine 14 MG PATCH.TD24 TD SCH (09:00)
[2021-05-22] MEDS: Piperacillin/Tazobactam 3.375 GM in 0.9 % Sodium Chloride Mini Bag 100 ML IVPB SCH ×4 (00:01→23:26)
[2021-05-22 04:29] LABS: Basophils # 0.1 K/mcL (0.0-0.2); Basophils % 0.7 %; Eosinophils # 0.2 K/mcL (0.0-0.6); Eosinophils % 2.6 %; Hematocrit 33.8 % (37.5-50.1); Hemoglobin 10.3 g/dL (12.9-16.9); Immature Granulocytes % 0.3 % (0-4); Lymphocytes # 1.2 K/mcL (0.6-4.6); Lymphocytes % 15.7 %; Mean Corpuscular HGB Conc 30.5 g/dL (31.6-35.5); Mean Corpuscular Hemoglobin 23.6 pg (28.0-33.3); Mean Corpuscular Volume 77.3 fL (83.0-100.0); Mean Platelet Volume 10.4 fL (9.4-12.4); Monocytes # 0.7 K/mcL (0.0-1.3); Monocytes % 9.1 %; Neutrophils # 5.3 K/mcL (1.6-8.9); Platelet Count 247 K/mcL (140-400); Red Blood Count 4.37 M/mcL (4.19-5.50); Red Cell Distribution Width 16.3 % (11.5-14.5); Segmented Neutrophils % 71.6 %; White Blood Count 7.3 K/mcL (4.3-11.1)
[2021-05-22 04:40] LABS: BUN/Creatinine Ratio 16 (6-26); Blood Urea Nitrogen 13 mg/dL (8-23); Calcium 8.7 mg/dL (8.6-10.3); Carbon Dioxide 27 mEq/L (23-29); Chloride 102 mEq/L (98-107); Glucose 165 mg/dL (70-105); Magnesium 1.8 mg/dL (1.6-2.6); Osmolality,Calculated 284 (280-300); Potassium 4.2 mEq/L (3.5-5.1); Sodium 135 mEq/L (136-145); eGFR For African Americans > 60 (> 60); eGFR For Non-African Americans > 60 (> 60)
[2021-05-22] MEDS: *HR* Heparin 5,000 UNIT/ML VIAL SQ SCH ×2 (06:36→18:26)
[2021-05-22] MEDS: Insulin LISPRO 300 UNITS/3 ML VIAL SUBQ SCH ×4 (08:07→20:49)
[2021-05-22] MEDS: Gabapentin 300 MG CAPSULE PO SCH ×2 (09:30→20:47)
[2021-05-22] MEDS: polyethylene glycoL 3350 17 GM POWD.PACK PO SCH (09:30)
[2021-05-22] MEDS: Metoprolol 100 MG TABLET PO SCH ×2 (09:30→20:51)
[2021-05-22] MEDS: Cholecalciferol (D-3) 1,000 UNIT (25MCG) TABLET PO SCH (09:30)
[2021-05-22] MEDS: amLODIPine 5 MG TABLET PO SCH (09:30)
[2021-05-22] MEDS: Aspirin Enteric Coated 81 MG Tablet PO SCH (09:30)
[2021-05-22] MEDS: Nicotine 7 MG PATCH.TD24 TD SCH (09:31)
[2021-05-23 04:53] LABS: Basophils % 0.5 %; Lymphocytes % 23.3 %; Segmented Neutrophils % 63.5 %
[2021-05-23 04:54] LABS: Eosinophils # 0.3 K/mcL (0.0-0.6); Eosinophils % 3.6 %; Hematocrit 35.5 % (37.5-50.1); Hemoglobin 10.8 g/dL (12.9-16.9); Immature Granulocytes % 0.3 % (0-4); Lymphocytes # 2.1 K/mcL (0.6-4.6); Mean Corpuscular HGB Conc 30.4 g/dL (31.6-35.5); Mean Corpuscular Hemoglobin 23.6 pg (28.0-33.3); Mean Corpuscular Volume 77.5 fL (83.0-100.0); Mean Platelet Volume 10.4 fL (9.4-12.4); Monocytes # 0.8 K/mcL (0.0-1.3); Monocytes % 8.8 %; Neutrophils # 5.6 K/mcL (1.6-8.9); Platelet Count 293 K/mcL (140-400); Red Blood Count 4.58 M/mcL (4.19-5.50); Red Cell Distribution Width 16.5 % (11.5-14.5); White Blood Count 8.8 K/mcL (4.3-11.1)
[2021-05-23 05:15] LABS: BUN/Creatinine Ratio 16 (6-26); Blood Urea Nitrogen 13 mg/dL (8-23); Calcium 9.1 mg/dL (8.6-10.3); Carbon Dioxide 23 mEq/L (23-29); Chloride 102 mEq/L (98-107); Glucose 179 mg/dL (70-105); Magnesium 1.9 mg/dL (1.6-2.6); Osmolality,Calculated 287 (280-300); Sodium 136 mEq/L (136-145); eGFR For African Americans > 60 (> 60); eGFR For Non-African Americans > 60 (> 60)
[2021-05-23 05:22] LABS: Hypochromasia Present (Not Present); Platelet Estimate Normal (Normal)
[2021-05-23] MEDS: *HR* Heparin 5,000 UNIT/ML VIAL SQ SCH (06:14)
[2021-05-23] MEDS: amLODIPine 5 MG TABLET PO SCH (08:40)
[2021-05-23] MEDS: Aspirin Enteric Coated 81 MG Tablet PO SCH (08:40)
[2021-05-23] MEDS: Gabapentin 300 MG CAPSULE PO SCH (08:41)
[2021-05-23] MEDS: Metoprolol 100 MG TABLET PO SCH (08:41)
[2021-05-23] MEDS: Piperacillin/Tazobactam 3.375 GM in 0.9 % Sodium Chloride Mini Bag 100 ML IVPB SCH (08:41)
[2021-05-23] MEDS: Cholecalciferol (D-3) 1,000 UNIT (25MCG) TABLET PO SCH (08:41)
[2021-05-23] MEDS: Insulin LISPRO 300 UNITS/3 ML VIAL SUBQ SCH ×2 (08:41→12:26)
[2021-05-23] MEDS: polyethylene glycoL 3350 17 GM POWD.PACK PO SCH (08:42)
[2021-05-23] MEDS: Nicotine 7 MG PATCH.TD24 TD SCH (08:43)
[2021-05-23 14:31] VITALS: BP 147/77; PULSE 67; TEMP 97.8; O2SAT 95
== END 2021-05-23 15:10 | disposition home or self-care (01) | DRG 253 ==
LOC: 4WAOSI → SUATTDRO 10:45
PROVIDERS: ADMIT Family Medicine; ATTEND Pharmacist

== ENCOUNTER 2021-09-19 16:04 | Inpatient (IN) ==
[2021-09-19] MEDS ORDERED: Iopamidol - 370 500 ML MLS IVP ONE (16:37)
[2021-09-19 18:02] LABS: Basophils # 0.1 K/mcL (0.0-0.2); Basophils % 0.6 %; Eosinophils % 0.2 %; Hematocrit 37.3 % (37.5-50.1); Hemoglobin 10.3 g/dL (12.9-16.9); Immature Granulocytes % 0.3 % (0-4); Lymphocytes # 0.9 K/mcL (0.6-4.6); Mean Corpuscular HGB Conc 27.6 g/dL (31.6-35.5); Mean Corpuscular Hemoglobin 20.4 pg (28.0-33.3); Mean Corpuscular Volume 73.9 fL (83.0-100.0); Mean Platelet Volume 10.7 fL (9.4-12.4); Monocytes # 0.4 K/mcL (0.0-1.3); Monocytes % 4.6 %; Nucleated Red Blood Cells 0.2 /100 WBC (0); Platelet Count 234 K/mcL (140-400); Red Blood Count 5.05 M/mcL (4.19-5.50); Red Cell Distribution Width 18.1 % (11.5-14.5); Segmented Neutrophils % 85.3 %; White Blood Count 9.4 K/mcL (4.3-11.1)
[2021-09-19 18:10] LABS: ABG Base Excess 3 mEq/L (-2 to 3); ABG HCO3 30 mEq/L (21-27); ABG Oxygen Saturation 91 % (95-98); ABG PCO2 53 mmHg (35-45); ABG PH 7.36 pH Units (7.32-7.45); ABG PO2 65 mmHg (85-104); ABG TCO2 31 mEq/L (20-26)
[2021-09-19 18:18] LABS: Hypochromasia Present (Not Present); Platelet Estimate Normal (Normal)
[2021-09-19 18:26] LABS: Alanine Aminotransferase 14 Units/L (7-52); Albumin 3.8 g/dL (3.5-5.7); Albumin/Globulin Ratio 1.1 (1.1-2.2); Alkaline Phosphatase 116 Units/L (34-104); Aspartate Amino Transferase 13 Units/L (13-39); BUN/Creatinine Ratio 37 (6-26); Bilirubin,Total 0.4 mg/dL (0.3-1.0); Blood Urea Nitrogen 36 mg/dL (8-23); Calcium 9.1 mg/dL (8.6-10.3); Carbon Dioxide 27 mEq/L (23-29); Chloride 106 mEq/L (98-107); Globulin 3.5 g/dL (2.4-3.5); Glucose 160 mg/dL (70-105); Osmolality,Calculated 300 (280-300); Potassium 4.9 mEq/L (3.5-5.1); Sodium 139 mEq/L (136-145); Total Protein 7.3 g/dL (6.4-8.9); Troponin I < 0.03 ng/mL (< 0.04); eGFR For African Americans > 60 (> 60); eGFR For Non-African Americans > 60 (> 60)
[2021-09-19 18:48] LABS: Adenovirus Not Detected (Not Detect); Bordetella Pertussis Not Detected (Not Detect); Chlamydophila pneumoniae Not Detected (Not Detect); Coronavirus 229E Not Detected (Not Detect); Coronavirus HKU1 Not Detected (Not Detect); Coronavirus NL63 Not Detected (Not Detect); Coronavirus OC43 Not Detected (Not Detect); Human Metapneumovirus Not Detected (Not Detect); Human Rhinovirus/Enterovirus Not Detected (Not Detect); Influenza A Subtype 2009 H1 Not Detected (Not Detect); Influenza B Not Detected (Not Detect); Mycoplasma pneumoniae Not Detected (Not Detect); Parainfluenza Virus 1 Not Detected (Not Detect); Parainfluenza Virus 2 Not Detected (Not Detect); Parainfluenza Virus 3 Not Detected (Not Detect); Parainfluenza Virus 4 Not Detected (Not Detect); Respiratory Syncytial Virus Not Detected (Not Detect); SARS-CoV-2 Not Detected (Not Detect)
[2021-09-19] MEDS ORDERED: Azithromycin 250 MG TABLET PO ONE (20:04)
[2021-09-19] MEDS ORDERED: cefTRIAXone 1,000 MG in 0.9 % Sodium Chloride 10 ML IVP ONE (20:04)
[2021-09-19] MEDS ORDERED: Naloxone 0.4 MG/ML INJ IVP PRN (21:08)
[2021-09-19] MEDS ORDERED: *HR* Promethazine 25 MG/ML VIAL IM PRN (21:08)
[2021-09-19] MEDS ORDERED: Ondansetron 4 MG/2 ML VIAL IVP PRN (21:08)
[2021-09-19] MEDS ORDERED: Melatonin 3 MG TABLET PO PRN (21:08)
[2021-09-19] MEDS ORDERED: Acetaminophen 325 MG TABLET PO PRN (21:08)
[2021-09-19] MEDS ORDERED: *HR* HYDROcodone/Acet 5/325 mg TABLET PO PRN (21:08)
[2021-09-19] MEDS ORDERED: Ringers Solution, Lactated 1,000 ML IVC SCH (21:15)
[2021-09-20] MEDS ORDERED: Perflutren Lipid Microsphere 1.3 ML in 0.9 % Sodium Chloride 8.7 ML IVP PRN (00:01)
[2021-09-20 06:00] LABS: Basophils % 0.8 %; Hemoglobin 10.2 g/dL (12.9-16.9); Immature Granulocytes % 0.2 % (0-4)
[2021-09-20 06:01] LABS: Basophils # 0.1 K/mcL (0.0-0.2); Eosinophils # 0.1 K/mcL (0.0-0.6); Eosinophils % 1.3 %; Hematocrit 37.4 % (37.5-50.1); Lymphocytes # 1.4 K/mcL (0.6-4.6); Lymphocytes % 15.5 %; Mean Corpuscular HGB Conc 27.3 g/dL (31.6-35.5); Mean Corpuscular Hemoglobin 20.4 pg (28.0-33.3); Mean Corpuscular Volume 74.9 fL (83.0-100.0); Mean Platelet Volume 10.7 fL (9.4-12.4); Monocytes # 0.6 K/mcL (0.0-1.3); Monocytes % 6.5 %; Neutrophils # 6.9 K/mcL (1.6-8.9); Platelet Count 316 K/mcL (140-400); Red Blood Count 4.99 M/mcL (4.19-5.50); Red Cell Distribution Width 18.3 % (11.5-14.5); Segmented Neutrophils % 75.7 %; White Blood Count 9.1 K/mcL (4.3-11.1)
[2021-09-20 06:09] LABS: Hypochromasia Present (Not Present); Platelet Estimate Normal (Normal)
[2021-09-20 06:53] LABS: BUN/Creatinine Ratio 29 (6-26); Blood Urea Nitrogen 30 mg/dL (8-23); Calcium 9.1 mg/dL (8.6-10.3); Carbon Dioxide 26 mEq/L (23-29); Chloride 104 mEq/L (98-107); Glucose 124 mg/dL (70-105); Osmolality,Calculated 298 (280-300); Potassium 4.4 mEq/L (3.5-5.1); Sodium 140 mEq/L (136-145); eGFR For African Americans > 60 (> 60); eGFR For Non-African Americans > 60 (> 60)
[2021-09-20] MEDS: Aspirin Enteric Coated 81 MG Tablet PO SCH (09:10)
[2021-09-20] MEDS ORDERED: D5% in Water 1,000 ML IVC PRN (10:23)
[2021-09-20] MEDS ORDERED: Dextrose Gel 15 GM/37.5 ML TUBE PO PRN ×2 (10:23)
[2021-09-20] MEDS ORDERED: *HR* Dextrose 50 % in Water (Syg) 50 ML SYRINGE IVP PRN (10:23)
[2021-09-20] MEDS ORDERED: *HR* Enoxaparin 40 MG/0.4 ML SYRINGE SQ SCH (10:30)
[2021-09-20] MEDS: Insulin LISPRO 300 UNITS/3 ML VIAL SUBQ SCH ×2 (12:51→16:57)
[2021-09-20] MEDS: *HR* Heparin 5,000 UNIT/ML VIAL SQ SCH (16:58)
[2021-09-20] MEDS ORDERED: cefTRIAXone 1,000 MG in 0.9 % Sodium Chloride 10 ML IVP SCH (20:00)
[2021-09-20] MEDS ORDERED: Azithromycin 500 MG in 0.9 % Sodium Chloride 250 ML IVPB SCH (22:00)
[2021-09-21] MEDS: *HR* Heparin 5,000 UNIT/ML VIAL SQ SCH (06:11)
[2021-09-21 07:03] LABS: Hematocrit 36.1 % (37.5-50.1); Immature Granulocytes % 0.3 % (0-4)
[2021-09-21 07:06] LABS: Basophils # 0.1 K/mcL (0.0-0.2); Eosinophils # 0.2 K/mcL (0.0-0.6); Eosinophils % 2.7 %; Hemoglobin 9.8 g/dL (12.9-16.9); Lymphocytes # 1.1 K/mcL (0.6-4.6); Lymphocytes % 16.2 %; Mean Corpuscular HGB Conc 27.1 g/dL (31.6-35.5); Mean Corpuscular Volume 73.7 fL (83.0-100.0); Mean Platelet Volume 10.6 fL (9.4-12.4); Monocytes # 0.6 K/mcL (0.0-1.3); Monocytes % 7.9 %; Platelet Count 296 K/mcL (140-400); Segmented Neutrophils % 71.9 %
[2021-09-21 07:34] LABS: BUN/Creatinine Ratio 24 (6-26); Blood Urea Nitrogen 22 mg/dL (8-23); Carbon Dioxide 29 mEq/L (23-29); Chloride 103 mEq/L (98-107); Glucose 134 mg/dL (70-105); Magnesium 1.7 mg/dL (1.6-2.6); Osmolality,Calculated 295 (280-300); Phosphorous 4.4 mg/dL (2.7-4.5); Potassium 4.3 mEq/L (3.5-5.1); Sodium 140 mEq/L (136-145); eGFR For African Americans > 60 (> 60); eGFR For Non-African Americans > 60 (> 60)
[2021-09-21 08:08] LABS: Anisocytosis 2+ (Not Present); Hypochromasia Present (Not Present); Macrocytosis Present (Not Present); Poikilocytosis 1+ (Not Present)
[2021-09-21 08:09] LABS: Platelet Estimate Normal (Normal)
[2021-09-21] MEDS: Aspirin Enteric Coated 81 MG Tablet PO SCH (09:06)
[2021-09-21] MEDS: Insulin LISPRO 300 UNITS/3 ML VIAL SUBQ SCH (09:07)
[2021-09-21] MEDS ORDERED: amLODIPine 5 MG TABLET PO SCH (11:45)
[2021-09-21] MEDS ORDERED: Gabapentin 300 MG CAPSULE PO SCH (11:45)
[2021-09-21 12:14] VITALS: BP 134/60; PULSE 56; TEMP 97.8; O2SAT 94
[2021-09-21] MEDS ORDERED: Azithromycin 250 MG TABLET PO SCH (21:00)
[2021-09-21] MEDS ORDERED: Metoprolol 100 MG TABLET PO SCH (21:00)
== END 2021-09-21 14:26 | disposition home or self-care (01) | DRG 193 ==
LOC: 3ANU 16:04 → EMEROOARM 16:04 → SUATTDRO 21:48 → 3ANU 22:45
PROVIDERS: ADMIT Internal Medicine; ATTEND Internal Medicine

== ENCOUNTER 2022-01-07 03:10 | Inpatient (IN) ==
[2022-01-07] MEDS ORDERED: 0.9 % Sodium Chloride 1,000 ML IVC ONE (03:21)
[2022-01-07] MEDS ORDERED: Iopamidol - 370 500 ML MLS IVP ONE (03:25)
[2022-01-07 03:39] LABS: ABG Base Excess -22 mEq/L (-2 to 3); ABG HCO3 11 mEq/L (21-27); ABG Oxygen Saturation 100 % (95-98); ABG PCO2 61 mmHg (35-45); ABG PH 6.86 pH Units (7.32-7.45); ABG PO2 304 mmHg (85-104); ABG TCO2 13 mEq/L (20-26); Blood Gas Modality ASSIST CONTROL; Blood Gas VT 500 cc
[2022-01-07 03:51] LABS: Eosinophils % 0.3 %; Hemoglobin 6.5 g/dL (12.9-16.9); Mean Platelet Volume 10.7 fL (9.4-12.4); Red Cell Distribution Width 20.6 % (11.5-14.5); Segmented Neutrophils % 59.2 %
[2022-01-07 03:53] LABS: Basophils # 0.1 K/mcL (0.0-0.2); Basophils % 0.5 %; Hematocrit 28.5 % (37.5-50.1); Immature Granulocytes % 6.1 % (0-4); Lymphocytes % 28.7 %; Mean Corpuscular HGB Conc 22.8 g/dL (31.6-35.5); Mean Corpuscular Hemoglobin 17.1 pg (28.0-33.3); Mean Corpuscular Volume 74.8 fL (83.0-100.0); Monocytes # 0.7 K/mcL (0.0-1.3); Monocytes % 5.2 %; Nucleated Red Blood Cells 6.8 /100 WBC (0); Platelet Count 271 K/mcL (140-400); Red Blood Count 3.81 M/mcL (4.19-5.50); White Blood Count 13.9 K/mcL (4.3-11.1)
[2022-01-07 03:58] LABS: Neutrophils # 8.2 K/mcL (1.6-8.9)
[2022-01-07 03:59] LABS: INR 1.4; Prothrombin Time 15.6 Seconds (9.4-12.1)
[2022-01-07 04:05] LABS: Platelet Estimate Normal (Normal)
[2022-01-07 04:06] LABS: Anisocytosis 2+ (Not Present); Hypochromasia Present (Not Present); Large Platelets Present (Not Present); Poikilocytosis 1+ (Not Present)
[2022-01-07 04:10] LABS: Magnesium 2.7 mg/dL (1.6-2.6); Phosphorous 9.7 mg/dL (2.7-4.5)
[2022-01-07 04:13] LABS: Albumin 3.6 g/dL (3.5-5.7); Albumin/Globulin Ratio 1.3 (1.1-2.2); Bilirubin,Total 0.4 mg/dL (0.3-1.0); Calcium 10.5 mg/dL (8.6-10.3); Globulin 2.8 g/dL (2.4-3.5); Potassium 3.9 mEq/L (3.5-5.1); Total Protein 6.4 g/dL (6.4-8.9)
[2022-01-07 04:17] LABS: Troponin I 0.04 ng/mL (< 0.04)
[2022-01-07] MEDS ORDERED: Norepinephrine 4 MG/254 ML IV.SOLN IVC SCH ×2 (04:45→11:00)
[2022-01-07] MEDS ORDERED: Norepinephrine 4 MG/254 ML IV.SOLN IVC ONE ×2 (04:55→07:46)
[2022-01-07 05:20] LABS: ABG Base Excess -15 mEq/L (-2 to 3); ABG HCO3 12 mEq/L (21-27); ABG Oxygen Saturation 94 % (95-98); ABG PCO2 33 mmHg (35-45); ABG PH 7.18 pH Units (7.32-7.45); ABG PO2 87 mmHg (85-104); ABG TCO2 13 mEq/L (20-26)
[2022-01-07] MEDS ORDERED: 0.9 % Sodium Chloride 250 ML ONE ×2 (06:59→22:56)
[2022-01-07] MEDS ORDERED: *HR* Heparin 5,000 UNIT/ML VIAL IVP PRN ×4 (07:57→16:42)
[2022-01-07] MEDS ORDERED: *HR* Heparin 5,000 UNIT/ML VIAL IVP ONE (07:57)
[2022-01-07] MEDS ORDERED: Heparin 25,000UNIT/250ML 1/2NS 25,000 UNIT/250 ML IV.SOLN IVC SCH ×2 (08:00→16:45)
[2022-01-07 08:02] LABS: Bacteria,Urine Many per hpf (None-Few); Bilirubin,Urine Negative (Negative); Blood,Urine Moderate (Negative); Clarity,Urine Turbid (Clear); Color,Urine Yellow (Yellow); Glucose,Urine (UA) >=1000 mg/dL (Normal); Hyaline Casts,Urine Few per lpf (None Seen); Ketones,Urine Negative (Negative); Leukocyte Esterase,Urine Negative (Negative); Mucus,Urine Few per lpf (None-Few); Nitrite,Urine Negative (Negative); Protein,Urine >=300 mg/dL (Neg-Trace); RBC,Urine TNTC per hpf (0-3); Specific Gravity,Urine 1.022 (1.010-1.025); Squamous Epithelial Cell,Urine Few per hpf (None-Few); Urobilinogen,Urine Normal (Normal); WBC,Urine TNTC per hpf (0-3)
[2022-01-07 08:43] LABS: Adenovirus Not Detected (Not Detect); Bordetella Pertussis Not Detected (Not Detect); Chlamydophila pneumoniae Not Detected (Not Detect); Coronavirus 229E Not Detected (Not Detect); Coronavirus HKU1 Not Detected (Not Detect); Coronavirus NL63 Not Detected (Not Detect); Coronavirus OC43 Not Detected (Not Detect); Human Metapneumovirus Not Detected (Not Detect); Human Rhinovirus/Enterovirus Not Detected (Not Detect); Influenza A Subtype 2009 H1 Not Detected (Not Detect); Influenza B Not Detected (Not Detect); Mycoplasma pneumoniae Not Detected (Not Detect); Parainfluenza Virus 1 Not Detected (Not Detect); Parainfluenza Virus 2 Not Detected (Not Detect); Parainfluenza Virus 3 Not Detected (Not Detect); Parainfluenza Virus 4 Not Detected (Not Detect); Respiratory Syncytial Virus Not Detected (Not Detect); SARS-CoV-2 Not Detected (Not Detect)
[2022-01-07] MEDS: FentaNYL (PF) 1,000 MCG/100 ML IV.SOLN IVC SCH ×3 (10:15→21:22)
[2022-01-07 10:34] LABS: Hemoglobin 7.7 g/dL (12.9-16.9); Mean Corpuscular HGB Conc 24.8 g/dL (31.6-35.5); Mean Corpuscular Hemoglobin 18.2 pg (28.0-33.3); Mean Corpuscular Volume 73.1 fL (83.0-100.0); Mean Platelet Volume 10.7 fL (9.4-12.4); Platelet Count 364 K/mcL (140-400); Red Blood Count 4.24 M/mcL (4.19-5.50); Red Cell Distribution Width 22.1 % (11.5-14.5)
[2022-01-07 10:36] LABS: White Blood Count 35.5 K/mcL (4.3-11.1)
[2022-01-07 10:40] LABS: Heparin anti-factor XA UFH < 0.04 IU/mL (0.30-0.70); INR 1.4; Prothrombin Time 15.8 Seconds (9.4-12.1)
[2022-01-07] MEDS ORDERED: Albuterol 2.5 MG/3 ML NEBULIZER IH PRN (10:49)
[2022-01-07] MEDS ORDERED: Naloxone 0.4 MG/ML INJ IVP PRN (10:49)
[2022-01-07] MEDS ORDERED: Acetaminophen 325 MG TABLET PO PRN (10:49)
[2022-01-07] MEDS: Norepinephrine 32 MG/250 ML IV.SOLN IVC SCH (10:55)
[2022-01-07] MEDS ORDERED: Artificial Tears SOLN 15 ML BOTTLE BOTH EYES PRN (10:57)
[2022-01-07] MEDS ORDERED: Vancomycin (wt based) 1,000 MG VIAL IVPB SCH (11:00)
[2022-01-07] MEDS: Ipratropium/Albuterol Neb 3 ML IH SCH ×3 (11:43→19:55)
[2022-01-07 11:52] LABS: Bacteria,Urine Few per hpf (None-Few); Bilirubin,Urine Negative (Negative); Blood,Urine Moderate (Negative); Clarity,Urine Turbid (Clear); Color,Urine Light-Yellow (Yellow); Glucose,Urine (UA) >=1000 mg/dL (Normal); Ketones,Urine Negative (Negative); Leukocyte Esterase,Urine Negative (Negative); Mucus,Urine Few per lpf (None-Few); Nitrite,Urine Negative (Negative); PH,Urine 5.5 pH Units (5.0-8.0); Protein,Urine 70 mg/dL (Neg-Trace); RBC,Urine 15-30 per hpf (0-3); Specific Gravity,Urine > 1.030 (1.010-1.025); Squamous Epithelial Cell,Urine Few per hpf (None-Few); Urobilinogen,Urine Normal (Normal); WBC,Urine 15-30 per hpf (0-3)
[2022-01-07 11:57] LABS: ABG Base Excess -7 mEq/L (-2 to 3); ABG HCO3 20 mEq/L (21-27); ABG Oxygen Saturation 94 % (95-98); ABG PCO2 41 mmHg (35-45); ABG PH 7.29 pH Units (7.32-7.45); ABG PO2 81 mmHg (85-104); ABG TCO2 21 mEq/L (20-26); Blood Gas Modality ASSIST CONTROL; Blood Gas VT 550 cc
[2022-01-07] MEDS ORDERED: Vancomycin 2,000 MG/520 ML IV.SOLN IVPB ONE (12:27)
[2022-01-07] MEDS: 0.9 % Sodium Chloride 1,000 ML IVC SCH ×3 (12:39→16:06)
[2022-01-07] MEDS ORDERED: Dextrose Gel 15 GM/37.5 ML TUBE PO PRN ×2 (12:39)
[2022-01-07] MEDS ORDERED: *HR* Dextrose 50 % in Water (Syg) 50 ML SYRINGE IVP PRN (12:39)
[2022-01-07] MEDS: Artificial Tears SOLN 15 ML BOTTLE BOTH EYES SCH ×4 (12:39→23:54)
[2022-01-07] MEDS ORDERED: D5% in Water 1,000 ML IVC PRN (12:39)
[2022-01-07] MEDS: Piperacillin/Tazobactam 3.375 GM in 0.9 % Sodium Chloride Mini Bag 100 ML IVPB SCH ×2 (12:39→16:34)
[2022-01-07 14:15] LABS: ABG Base Excess -2 mEq/L (-2 to 3); ABG Chloride 107 mEq/L (98-107); ABG Glucose 313 mg/dL (60-95); ABG HCO3 23 mEq/L (21-27); ABG Ionized Calcium 1.14 mmol/L (1.15-1.35); ABG Oxygen Saturation 87 % (95-98); ABG PCO2 39 mmHg (35-45); ABG PH 7.37 pH Units (7.32-7.45); ABG PO2 54 mmHg (85-104); ABG TCO2 24 mEq/L (20-26); Blood Gas VT 550 cc
[2022-01-07 14:16] LABS: Hematocrit 28.6 % (37.5-50.1); Hemoglobin 7.4 g/dL (12.9-16.9)
[2022-01-07 14:50] LABS: Thyroid Stimulating Hormone 1.771 mcIU/mL (0.340-5.600); Troponin I 0.91 ng/mL (< 0.04)
[2022-01-07] MEDS: Insulin LISPRO 300 UNITS/3 ML VIAL SUBQ SCH ×3 (16:09→23:53)
[2022-01-07] MEDS: Pantoprazole 40 MG VIAL IVP SCH (18:40)
[2022-01-07] MEDS: Chlorhexidine Rinse 15 ML MOUTHWASH MM SCH (21:25)
[2022-01-07 21:30] LABS: Hemoglobin 7.1 g/dL (12.9-16.9); Mean Platelet Volume 10.6 fL (9.4-12.4); Red Cell Distribution Width 21.5 % (11.5-14.5)
[2022-01-07 21:32] LABS: Hematocrit 27.1 % (37.5-50.1); Immature Platelets 5.5 % (1.1-6.1); Mean Corpuscular HGB Conc 26.2 g/dL (31.6-35.5); Mean Corpuscular Hemoglobin 18.3 pg (28.0-33.3); Red Blood Count 3.87 M/mcL (4.19-5.50); White Blood Count 16.9 K/mcL (4.3-11.1)
[2022-01-08] MEDS: Ipratropium/Albuterol Neb 3 ML IH SCH ×8 (00:05→22:59)
[2022-01-08] MEDS: Piperacillin/Tazobactam 3.375 GM in 0.9 % Sodium Chloride Mini Bag 100 ML IVPB SCH ×4 (01:57→23:32)
[2022-01-08] MEDS: Artificial Tears SOLN 15 ML BOTTLE BOTH EYES SCH ×6 (03:51→23:32)
[2022-01-08] MEDS: Insulin LISPRO 300 UNITS/3 ML VIAL SUBQ SCH ×6 (03:51→23:32)
[2022-01-08 03:56] LABS: Basophils % 0.2 %; Hematocrit 28.6 % (37.5-50.1); Nucleated Red Blood Cells 0.8 /100 WBC (0); Red Cell Distribution Width 22.6 % (11.5-14.5)
[2022-01-08 03:58] LABS: Hemoglobin 7.7 g/dL (12.9-16.9); Immature Granulocytes % 0.4 % (0-4); Immature Platelets 5.2 % (1.1-6.1); Lymphocytes # 0.7 K/mcL (0.6-4.6); Lymphocytes % 4.4 %; Mean Corpuscular HGB Conc 26.9 g/dL (31.6-35.5); Mean Corpuscular Hemoglobin 19.1 pg (28.0-33.3); Mean Corpuscular Volume 70.8 fL (83.0-100.0); Mean Platelet Volume 10.1 fL (9.4-12.4); Monocytes # 1.3 K/mcL (0.0-1.3); Monocytes % 7.5 %; Neutrophils # 14.7 K/mcL (1.6-8.9); Platelet Count 211 K/mcL (140-400); Red Blood Count 4.04 M/mcL (4.19-5.50); Segmented Neutrophils % 87.5 %; White Blood Count 16.8 K/mcL (4.3-11.1)
[2022-01-08 04:01] LABS: VBG Ionized Calcium 1.11 mmol/L (1.15-1.35)
[2022-01-08 04:05] LABS: Heparin anti-factor XA UFH < 0.04 IU/mL (0.30-0.70); INR 1.4; Prothrombin Time 15.4 Seconds (9.4-12.1)
[2022-01-08 04:08] LABS: Activated Partial Thrombo Time 27.9 Seconds (26.0-36.0)
[2022-01-08 04:09] LABS: ABG Base Excess 2 mEq/L (-2 to 3); ABG HCO3 27 mEq/L (21-27); ABG Oxygen Saturation 95 % (95-98); ABG PCO2 47 mmHg (35-45); ABG PH 7.37 pH Units (7.32-7.45); ABG PO2 78 mmHg (85-104); ABG TCO2 29 mEq/L (20-26); Blood Gas Modality AF; Blood Gas VT 550 cc
[2022-01-08 04:15] LABS: Albumin 3.4 g/dL (3.5-5.7); Albumin/Globulin Ratio 1.3 (1.1-2.2); Bilirubin,Direct 0.2 mg/dL (0.0-0.2); Bilirubin,Indirect 0.3 mg/dL (0.0-1.0); Bilirubin,Total 0.5 mg/dL (0.3-1.0); Calcium 8.2 mg/dL (8.6-10.3); Globulin 2.6 g/dL (2.4-3.5); Magnesium 2.1 mg/dL (1.6-2.6); Phosphorous 4.6 mg/dL (2.7-4.5); Potassium 4.1 mEq/L (3.5-5.1)
[2022-01-08 04:51] LABS: Anisocytosis 1+ (Not Present); Hypochromasia Present (Not Present); Poikilocytosis 1+ (Not Present)
[2022-01-08 04:52] LABS: Platelet Estimate Normal (Normal)
[2022-01-08] MEDS: Pantoprazole 40 MG VIAL IVP SCH ×2 (05:13→17:50)
[2022-01-08] MEDS: Chlorhexidine Rinse 15 ML MOUTHWASH MM SCH ×2 (07:54→19:54)
[2022-01-08 08:14] LABS: Hemoglobin 7.5 g/dL (12.9-16.9)
[2022-01-08 08:16] LABS: Hematocrit 27.9 % (37.5-50.1)
[2022-01-08] MEDS ORDERED: Iopamidol - 300 100 ML INFUS..BTL ONE (10:21)
[2022-01-08] MEDS ORDERED: Heparin 1,000 UNITS/500 mL 500 ML ONE (10:21)
[2022-01-08] MEDS: FentaNYL (PF) 1,000 MCG/100 ML IV.SOLN IVC SCH ×2 (10:44→20:14)
[2022-01-08] MEDS: Vancomycin 2,000 MG/520 ML IV.SOLN IVPB SCH (14:02)
[2022-01-08 15:35] LABS: Hematocrit 26.4 % (37.5-50.1)
[2022-01-08] MEDS ORDERED: 0.9 % Sodium Chloride 500 ML ONE (16:45)
[2022-01-08] MEDS: Norepinephrine 32 MG/250 ML IV.SOLN IVC SCH (19:49)
[2022-01-08 20:27] LABS: Hemoglobin 7.7 g/dL (12.9-16.9)
[2022-01-09 03:26] LABS: Basophils % 0.4 %
[2022-01-09 03:28] LABS: Basophils # 0.1 K/mcL (0.0-0.2); Hematocrit 29.2 % (37.5-50.1); Hemoglobin 8.2 g/dL (12.9-16.9); Immature Granulocytes % 0.6 % (0-4); Immature Platelets 5.6 % (1.1-6.1); Lymphocytes # 0.9 K/mcL (0.6-4.6); Lymphocytes % 5.2 %; Mean Corpuscular HGB Conc 28.1 g/dL (31.6-35.5); Mean Corpuscular Hemoglobin 19.8 pg (28.0-33.3); Mean Corpuscular Volume 70.5 fL (83.0-100.0); Monocytes # 1.2 K/mcL (0.0-1.3); Monocytes % 6.9 %; Neutrophils # 14.4 K/mcL (1.6-8.9); Nucleated Red Blood Cells 0.6 /100 WBC (0); Platelet Count 174 K/mcL (140-400); Red Blood Count 4.14 M/mcL (4.19-5.50); Red Cell Distribution Width 22.5 % (11.5-14.5); Segmented Neutrophils % 86.9 %; White Blood Count 16.6 K/mcL (4.3-11.1)
[2022-01-09 03:50] LABS: Albumin 3.3 g/dL (3.5-5.7); Albumin/Globulin Ratio 1.1 (1.1-2.2); Bilirubin,Direct 0.3 mg/dL (0.0-0.2); Bilirubin,Indirect 0.3 mg/dL (0.0-1.0); Bilirubin,Total 0.6 mg/dL (0.3-1.0); Calcium 8.3 mg/dL (8.6-10.3); Globulin 2.9 g/dL (2.4-3.5); Magnesium 2.2 mg/dL (1.6-2.6); Phosphorous 3.3 mg/dL (2.7-4.5); Potassium 3.9 mEq/L (3.5-5.1); Total Protein 6.2 g/dL (6.4-8.9)
[2022-01-09] MEDS: Ipratropium/Albuterol Neb 3 ML IH SCH ×6 (03:52→23:19)
[2022-01-09 03:58] LABS: Hypochromasia Present (Not Present); Microcytosis Present (Not Present); Platelet Estimate Normal (Normal); Poikilocytosis 1+ (Not Present); Polychromasia 1+ (Not Present); Target Cells 1+ (Not Present)
[2022-01-09 03:59] LABS: Anisocytosis 2+ (Not Present)
[2022-01-09 04:39] LABS: ABG Base Excess 1 mEq/L (-2 to 3); ABG HCO3 26 mEq/L (21-27); ABG Oxygen Saturation 90 % (95-98); ABG PCO2 42 mmHg (35-45); ABG PH 7.39 pH Units (7.32-7.45); ABG PO2 60 mmHg (85-104); ABG TCO2 27 mEq/L (20-26); Blood Gas VT 550 cc
[2022-01-09] MEDS: Pantoprazole 40 MG VIAL IVP SCH ×2 (05:23→17:24)
[2022-01-09] MEDS: Insulin LISPRO 300 UNITS/3 ML VIAL SUBQ SCH ×5 (05:24→20:45)
[2022-01-09] MEDS: Artificial Tears SOLN 15 ML BOTTLE BOTH EYES SCH ×5 (05:24→20:32)
[2022-01-09] MEDS: Piperacillin/Tazobactam 3.375 GM in 0.9 % Sodium Chloride Mini Bag 100 ML IVPB SCH ×2 (08:34→15:32)
[2022-01-09] MEDS: Chlorhexidine Rinse 15 ML MOUTHWASH MM SCH ×2 (08:34→20:32)
[2022-01-09] MEDS: Insulin DETEMIR 100 UNIT/ML X5UNITS SUBQ SCH (11:00)
[2022-01-09] MEDS ORDERED: Acetaminophen IV 1,000 MG/100 ML BAG IVPB PRN (11:12)
[2022-01-09] MEDS ORDERED: Acetaminophen IV 1,000 MG/100 ML BAG IVPB SCH (12:00)
[2022-01-09] MEDS: Norepinephrine 32 MG/250 ML IV.SOLN IVC SCH (13:29)
[2022-01-09] MEDS: Vancomycin 2,000 MG/520 ML IV.SOLN IVPB SCH (13:31)
[2022-01-09] MEDS: FentaNYL (PF) 1,000 MCG/100 ML IV.SOLN IVC SCH (17:45)
[2022-01-09 19:17] LABS: Hematocrit 29.4 % (37.5-50.1); Hemoglobin 7.7 g/dL (12.9-16.9)
[2022-01-10] MEDS: Piperacillin/Tazobactam 3.375 GM in 0.9 % Sodium Chloride Mini Bag 100 ML IVPB SCH ×3 (00:24→16:09)
[2022-01-10] MEDS: Artificial Tears SOLN 15 ML BOTTLE BOTH EYES SCH ×6 (00:24→20:19)
[2022-01-10] MEDS: Ipratropium/Albuterol Neb 3 ML IH SCH ×6 (03:47→23:59)
[2022-01-10 03:53] LABS: ABG Base Excess 3 mEq/L (-2 to 3); ABG HCO3 28 mEq/L (21-27); ABG Oxygen Saturation 91 % (95-98); ABG PCO2 45 mmHg (35-45); ABG PO2 60 mmHg (85-104); ABG TCO2 29 mEq/L (20-26); Blood Gas VT 550 cc
[2022-01-10 04:24] LABS: Basophils # 0.1 K/mcL (0.0-0.2); Basophils % 0.3 %; Hematocrit 29.2 % (37.5-50.1); Hemoglobin 7.7 g/dL (12.9-16.9); Immature Granulocytes % 0.9 % (0-4); Immature Platelets 5.4 % (1.1-6.1); Lymphocytes # 0.4 K/mcL (0.6-4.6); Lymphocytes % 2.6 %; Mean Corpuscular HGB Conc 26.4 g/dL (31.6-35.5); Mean Corpuscular Hemoglobin 19.2 pg (28.0-33.3); Mean Corpuscular Volume 72.8 fL (83.0-100.0); Monocytes # 0.9 K/mcL (0.0-1.3); Monocytes % 5.5 %; Neutrophils # 15.4 K/mcL (1.6-8.9); Nucleated Red Blood Cells 0.6 /100 WBC (0); Platelet Count 156 K/mcL (140-400); Red Blood Count 4.01 M/mcL (4.19-5.50); Red Cell Distribution Width 22.6 % (11.5-14.5); Segmented Neutrophils % 90.7 %
[2022-01-10 04:44] LABS: Albumin 3.2 g/dL (3.5-5.7); Albumin/Globulin Ratio 1.1 (1.1-2.2); Bilirubin,Direct 0.4 mg/dL (0.0-0.2); Bilirubin,Indirect 0.4 mg/dL (0.0-1.0); Bilirubin,Total 0.8 mg/dL (0.3-1.0); Calcium 8.2 mg/dL (8.6-10.3); Globulin 2.9 g/dL (2.4-3.5); Magnesium 2.5 mg/dL (1.6-2.6); Phosphorous 2.9 mg/dL (2.7-4.5); Total Protein 6.1 g/dL (6.4-8.9)
[2022-01-10] MEDS: Insulin LISPRO 300 UNITS/3 ML VIAL SUBQ SCH ×5 (05:19→16:08)
[2022-01-10] MEDS: Pantoprazole 40 MG VIAL IVP SCH ×2 (05:29→17:11)
[2022-01-10] MEDS: Insulin DETEMIR 100 UNIT/ML X5UNITS SUBQ SCH ×2 (07:29→20:24)
[2022-01-10] MEDS: Chlorhexidine Rinse 15 ML MOUTHWASH MM SCH ×2 (07:29→20:19)
[2022-01-10] MEDS: Norepinephrine 32 MG/250 ML IV.SOLN IVC SCH (07:31)
[2022-01-10] MEDS ORDERED: Calcium Gluconate 1gm/50mL 1 GM/50 ML BAG IVPB PRN (07:40)
[2022-01-10] MEDS ORDERED: Potassium Phosphate 44 MEQ in 0.9 % Sodium Chloride 250 ML IVPB PRN (07:40)
[2022-01-10] MEDS ORDERED: D10% in Water 500 ML IVC PRN (08:51)
[2022-01-10] MEDS ORDERED: Iopamidol - 370 500 ML MLS IVP ONE (10:49)
[2022-01-10 12:47] LABS: Hemoglobin 7.7 g/dL (12.9-16.9); Nucleated Red Blood Cells 0.8 /100 WBC (0); Red Cell Distribution Width 22.8 % (11.5-14.5)
[2022-01-10 12:49] LABS: Basophils % 0.3 %; Hematocrit 29.1 % (37.5-50.1); Immature Granulocytes % 0.7 % (0-4); Immature Platelets 6.2 % (1.1-6.1); Lymphocytes # 0.4 K/mcL (0.6-4.6); Lymphocytes % 2.7 %; Mean Corpuscular HGB Conc 26.5 g/dL (31.6-35.5); Mean Corpuscular Hemoglobin 19.3 pg (28.0-33.3); Mean Corpuscular Volume 72.9 fL (83.0-100.0); Monocytes # 0.8 K/mcL (0.0-1.3); Monocytes % 5.1 %; Neutrophils # 13.6 K/mcL (1.6-8.9); Platelet Count 154 K/mcL (140-400); Red Blood Count 3.99 M/mcL (4.19-5.50); Segmented Neutrophils % 91.2 %; White Blood Count 14.9 K/mcL (4.3-11.1)
[2022-01-10 13:15] LABS: Anisocytosis 1+ (Not Present); Hypochromasia Present (Not Present); Platelet Estimate Normal (Normal)
[2022-01-10] MEDS: Fat Emulsion 250 ML IVPB SCH (16:10)
[2022-01-10] MEDS ORDERED: Clinimix E 5%-15% SOLUTION 2,000 ML with MVI, adult with vitamin K 10 ML IVC SCH (17:00)
[2022-01-11] MEDS: Piperacillin/Tazobactam 3.375 GM in 0.9 % Sodium Chloride Mini Bag 100 ML IVPB SCH ×4 (00:06→23:28)
[2022-01-11] MEDS: Artificial Tears SOLN 15 ML BOTTLE BOTH EYES SCH ×7 (00:07→23:23)
[2022-01-11] MEDS: Insulin LISPRO 300 UNITS/3 ML VIAL SUBQ SCH ×7 (00:10→23:24)
[2022-01-11] MEDS: Ipratropium/Albuterol Neb 3 ML IH SCH ×5 (03:18→20:02)
[2022-01-11 03:24] LABS: Segmented Neutrophils % 85.1 %
[2022-01-11 03:26] LABS: Basophils # 0.1 K/mcL (0.0-0.2); Basophils % 0.7 %; Eosinophils % 0.1 %; Hematocrit 27.8 % (37.5-50.1); Hemoglobin 7.4 g/dL (12.9-16.9); Immature Granulocytes % 0.7 % (0-4); Immature Platelets 5.8 % (1.1-6.1); Lymphocytes # 0.7 K/mcL (0.6-4.6); Lymphocytes % 5.9 %; Mean Corpuscular HGB Conc 26.6 g/dL (31.6-35.5); Mean Corpuscular Hemoglobin 19.2 pg (28.0-33.3); Mean Corpuscular Volume 72.2 fL (83.0-100.0); Monocytes # 0.9 K/mcL (0.0-1.3); Monocytes % 7.5 %; Neutrophils # 9.9 K/mcL (1.6-8.9); Nucleated Red Blood Cells 1.8 /100 WBC (0); Platelet Count 161 K/mcL (140-400); Red Blood Count 3.85 M/mcL (4.19-5.50); Red Cell Distribution Width 23.3 % (11.5-14.5); White Blood Count 11.6 K/mcL (4.3-11.1)
[2022-01-11 04:03] LABS: Platelet Estimate Normal (Normal)
[2022-01-11 04:04] LABS: Anisocytosis 2+ (Not Present); Hypochromasia Present (Not Present); Poikilocytosis 1+ (Not Present); Polychromasia 1+ (Not Present)
[2022-01-11 04:09] LABS: ABG Base Excess 2 mEq/L (-2 to 3); ABG HCO3 26 mEq/L (21-27); ABG Oxygen Saturation 100 % (95-98); ABG PCO2 42 mmHg (35-45); ABG PH 7.41 pH Units (7.32-7.45); ABG PO2 163 mmHg (85-104); ABG TCO2 28 mEq/L (20-26); Blood Gas Modality AF; Blood Gas VT 550 cc
[2022-01-11] MEDS: Pantoprazole 40 MG VIAL IVP SCH ×2 (04:55→17:50)
[2022-01-11 05:28] LABS: Albumin 2.9 g/dL (3.5-5.7); Bilirubin,Direct 0.3 mg/dL (0.0-0.2); Bilirubin,Indirect 0.3 mg/dL (0.0-1.0); Bilirubin,Total 0.6 mg/dL (0.3-1.0); Calcium 8.2 mg/dL (8.6-10.3); Magnesium 2.7 mg/dL (1.6-2.6); Phosphorous 2.7 mg/dL (2.7-4.5); Potassium 4.1 mEq/L (3.5-5.1); Total Protein 5.9 g/dL (6.4-8.9)
[2022-01-11 06:38] LABS: VBG Ionized Calcium 1.14 mmol/L (1.15-1.35)
[2022-01-11] MEDS: Chlorhexidine Rinse 15 ML MOUTHWASH MM SCH ×2 (09:36→20:24)
[2022-01-11] MEDS: Insulin DETEMIR 100 UNIT/ML X5UNITS SUBQ SCH ×2 (09:40→20:28)
[2022-01-11 10:47] LABS: Calcium 8.4 mg/dL (8.6-10.3); Potassium 4.2 mEq/L (3.5-5.1)
[2022-01-11] MEDS ORDERED: Insulin DETEMIR 100 UNIT/ML X5UNITS SUBQ ONE (11:19)
[2022-01-11] MEDS: Norepinephrine 32 MG/250 ML IV.SOLN IVC SCH (12:07)
[2022-01-11] MEDS ORDERED: Clinimix E 5%-15% SOLUTION 2,000 ML with MVI, adult with vitamin K 10 ML IVC SCH (17:00)
[2022-01-11] MEDS: FentaNYL (PF) 1,000 MCG/100 ML IV.SOLN IVC SCH (17:50)
[2022-01-11] MEDS: Fat Emulsion 250 ML IVPB SCH (17:51)
[2022-01-12] MEDS: Ipratropium/Albuterol Neb 3 ML IH SCH ×6 (00:11→20:09)
[2022-01-12] MEDS: Insulin LISPRO 300 UNITS/3 ML VIAL SUBQ SCH ×4 (04:29→15:42)
[2022-01-12] MEDS: Artificial Tears SOLN 15 ML BOTTLE BOTH EYES SCH ×6 (04:29→23:27)
[2022-01-12 05:18] LABS: ABG Base Excess 4 mEq/L (-2 to 3); ABG HCO3 28 mEq/L (21-27); ABG Oxygen Saturation 97 % (95-98); ABG PCO2 42 mmHg (35-45); ABG PH 7.43 pH Units (7.32-7.45); ABG PO2 88 mmHg (85-104); ABG TCO2 30 mEq/L (20-26); Blood Gas Modality ASSIST CONTROL; Blood Gas VT 450 cc
[2022-01-12 05:21] LABS: Basophils # 0.1 K/mcL (0.0-0.2); Basophils % 0.6 %; Eosinophils # 0.1 K/mcL (0.0-0.6); Eosinophils % 0.7 %; Hemoglobin 7.1 g/dL (12.9-16.9); Immature Platelets 5.5 % (1.1-6.1); Mean Corpuscular Hemoglobin 19.3 pg (28.0-33.3); White Blood Count 9.4 K/mcL (4.3-11.1)
[2022-01-12] MEDS: Pantoprazole 40 MG VIAL IVP SCH ×2 (05:31→17:31)
[2022-01-12 06:48] LABS: Potassium 4.4 mEq/L (3.5-5.1)
[2022-01-12 06:49] LABS: Albumin 2.8 g/dL (3.5-5.7); Albumin/Globulin Ratio 0.9 (1.1-2.2); Bilirubin,Direct 0.3 mg/dL (0.0-0.2); Bilirubin,Indirect 0.4 mg/dL (0.0-1.0); Bilirubin,Total 0.7 mg/dL (0.3-1.0); Calcium 8.6 mg/dL (8.6-10.3); Globulin 3.1 g/dL (2.4-3.5); Magnesium 2.7 mg/dL (1.6-2.6); Phosphorous 3.4 mg/dL (2.7-4.5); Total Protein 5.9 g/dL (6.4-8.9)
[2022-01-12] MEDS: FentaNYL (PF) 1,000 MCG/100 ML IV.SOLN IVC SCH (07:29)
[2022-01-12] MEDS: Piperacillin/Tazobactam 3.375 GM in 0.9 % Sodium Chloride Mini Bag 100 ML IVPB SCH ×3 (08:04→23:29)
[2022-01-12] MEDS: Insulin DETEMIR 100 UNIT/ML X5UNITS SUBQ SCH (08:07)
[2022-01-12] MEDS: Chlorhexidine Rinse 15 ML MOUTHWASH MM SCH ×2 (08:07→20:09)
[2022-01-12] MEDS: Norepinephrine 32 MG/250 ML IV.SOLN IVC SCH (10:08)
[2022-01-12 12:03] LABS: Hematocrit 27.8 % (37.5-50.1); Immature Granulocytes % 0.6 % (0-4); Lymphocytes # 0.6 K/mcL (0.6-4.6); Lymphocytes % 6.4 %; Mean Corpuscular HGB Conc 25.5 g/dL (31.6-35.5); Mean Corpuscular Volume 75.7 fL (83.0-100.0); Mean Platelet Volume 10.6 fL (9.4-12.4); Monocytes # 0.7 K/mcL (0.0-1.3); Monocytes % 7.6 %; Neutrophils # 7.9 K/mcL (1.6-8.9); Nucleated Red Blood Cells 1.2 /100 WBC (0); Platelet Count 166 K/mcL (140-400); Red Blood Count 3.67 M/mcL (4.19-5.50); Red Cell Distribution Width 24.5 % (11.5-14.5); Segmented Neutrophils % 84.1 %
[2022-01-12 12:42] LABS: Anisocytosis 1+ (Not Present); Hypochromasia Present (Not Present); Microcytosis Present (Not Present); Platelet Estimate Normal (Normal)
[2022-01-12 12:55] LABS: Calcium 8.5 mg/dL (8.6-10.3); Potassium 4.6 mEq/L (3.5-5.1)
[2022-01-12] MEDS: Fat Emulsion 250 ML IVPB SCH (16:07)
[2022-01-12] MEDS ORDERED: Clinimix E 5%-15% SOLUTION 2,000 ML with MVI, adult with vitamin K 10 ML IVC SCH (17:00)
[2022-01-13] MEDS: Ipratropium/Albuterol Neb 3 ML IH SCH ×4 (00:12→11:14)
[2022-01-13] MEDS: Artificial Tears SOLN 15 ML BOTTLE BOTH EYES SCH ×5 (03:07→20:09)
[2022-01-13 03:21] LABS: Eosinophils % 2.2 %; Hemoglobin 7.5 g/dL (12.9-16.9); Red Cell Distribution Width 24.4 % (11.5-14.5)
[2022-01-13 03:23] LABS: Basophils # 0.1 K/mcL (0.0-0.2); Basophils % 0.6 %; Eosinophils # 0.2 K/mcL (0.0-0.6); Hematocrit 29.2 % (37.5-50.1); Immature Granulocytes % 0.5 % (0-4); Immature Platelets 5.4 % (1.1-6.1); Lymphocytes % 7.4 %; Mean Corpuscular HGB Conc 25.7 g/dL (31.6-35.5); Mean Corpuscular Hemoglobin 19.1 pg (28.0-33.3); Mean Corpuscular Volume 74.5 fL (83.0-100.0); Monocytes # 0.6 K/mcL (0.0-1.3); Monocytes % 6.9 %; Neutrophils # 7.2 K/mcL (1.6-8.9); Nucleated Red Blood Cells 0.8 /100 WBC (0); Platelet Count 159 K/mcL (140-400); Red Blood Count 3.92 M/mcL (4.19-5.50); Segmented Neutrophils % 82.4 %; White Blood Count 8.7 K/mcL (4.3-11.1)
[2022-01-13 03:26] LABS: Lymphocytes # 0.6 K/mcL (0.6-4.6)
[2022-01-13 03:40] LABS: Albumin 2.9 g/dL (3.5-5.7); Albumin/Globulin Ratio 0.9 (1.1-2.2); Bilirubin,Total 0.9 mg/dL (0.3-1.0); Globulin 3.3 g/dL (2.4-3.5); Potassium 4.2 mEq/L (3.5-5.1); Total Protein 6.2 g/dL (6.4-8.9)
[2022-01-13 03:42] LABS: Albumin 2.9 g/dL (3.5-5.7); Albumin/Globulin Ratio 0.9 (1.1-2.2); Bilirubin,Direct 0.4 mg/dL (0.0-0.2); Bilirubin,Indirect 0.5 mg/dL (0.0-1.0); Bilirubin,Total 0.9 mg/dL (0.3-1.0); Globulin 3.3 g/dL (2.4-3.5); Magnesium 2.5 mg/dL (1.6-2.6); Phosphorous 3.6 mg/dL (2.7-4.5); Total Protein 6.2 g/dL (6.4-8.9)
[2022-01-13 03:52] LABS: Hypochromasia Present (Not Present)
[2022-01-13 03:53] LABS: Anisocytosis 1+ (Not Present); Microcytosis Present (Not Present); Platelet Estimate Normal (Normal); Poikilocytosis 1+ (Not Present); Polychromasia 1+ (Not Present)
[2022-01-13 04:25] LABS: ABG Base Excess 3 mEq/L (-2 to 3); ABG HCO3 27 mEq/L (21-27); ABG Oxygen Saturation 99 % (95-98); ABG PCO2 39 mmHg (35-45); ABG PH 7.44 pH Units (7.32-7.45); ABG PO2 118 mmHg (85-104); ABG TCO2 28 mEq/L (20-26); Blood Gas Modality AF; Blood Gas VT 450 cc
[2022-01-13] MEDS: Pantoprazole 40 MG VIAL IVP SCH ×2 (05:24→17:31)
[2022-01-13] MEDS: FentaNYL (PF) 1,000 MCG/100 ML IV.SOLN IVC SCH (07:44)
[2022-01-13] MEDS: Norepinephrine 32 MG/250 ML IV.SOLN IVC SCH (07:45)
[2022-01-13] MEDS: Chlorhexidine Rinse 15 ML MOUTHWASH MM SCH ×2 (07:45→20:10)
[2022-01-13] MEDS: Piperacillin/Tazobactam 3.375 GM in 0.9 % Sodium Chloride Mini Bag 100 ML IVPB SCH (07:45)
[2022-01-13] MEDS ORDERED: Scopolamine Patch 1.5 MG PATCH.TD72 TD SCH (08:00)
[2022-01-13] MEDS ORDERED: *HR* LORazepam 2 MG/ML VIAL IVP PRN ×2 (09:03→14:07)
[2022-01-13 11:00] VITALS: TEMP 100.6
[2022-01-13 13:06] VITALS: PULSE 78
[2022-01-13] MEDS ORDERED: Glycopyrrolate 0.2 MG/ML VIAL IVP ONE (14:19)
[2022-01-13] MEDS ORDERED: Glycopyrrolate 0.2 MG/ML VIAL IVP PRN (14:20)
[2022-01-13] MEDS ORDERED: FentaNYL (PF) 1,000 MCG/100 ML IV.SOLN IVC SCH (14:25)
[2022-01-13] MEDS: Atropine Sulfate 1% 40 DROP/2 ML BOTTLE SL PRN ×2 (14:36→16:48)
[2022-01-13] MEDS: *HR* LORazepam 2 MG/ML VIAL IVP PRN ×2 (14:36→15:57)
[2022-01-13] MEDS ORDERED: Morphine Sulfate 2 MG/ML SYRINGE IVP PRN (16:44)
[2022-01-13 16:48] VITALS: BP 120/62; O2SAT 94
[2022-01-13] MEDS ORDERED: Clinimix E 5%-15% SOLUTION 2,000 ML with MVI, adult with vitamin K 10 ML IVC SCH (17:00)
[2022-01-14] MEDS ORDERED: Clinimix E 5%-15% SOLUTION 2,000 ML with MVI, adult with vitamin K 10 ML IVC SCH (17:00)
[2022-01-15] MEDS ORDERED: Clinimix E 5%-15% SOLUTION 2,000 ML with MVI, adult with vitamin K 10 ML IVC SCH (17:00)
== END 2022-01-13 18:16 | disposition expired | DRG 870 ==
LOC: ICNU 03:10 → EMEROOARM 03:10 → ICNU 09:15 → 2ANU 01-13 16:33
PROVIDERS: ADMIT Pediatrics; ATTEND Pediatrics